=== PATIENT | female | born 1950 | race Hispanic/Latino ===

== ENCOUNTER → 2019-02-04 | Outpatient (CLI) | payer MEDICARE, OTHER ==
[~2019-02-04] MED LIST: ADVAIR 100-501 EACH INH; AMLODIPINE BESY10 MG PO; BENZONATATE200 MG PO; BENZONATE; NORVASC10 MG PO
--- NOTE | 2019-02-04 12:20 | Diagnostic Imaging Report ---
Exam: Chest radiograph Clinical History: Preoperative clearance Findings: The cardiomediastinal silhouette and lungs are normal. The regional skeleton and soft tissue are unremarkable. There is no evidence of pleural effusion or pneumothorax. Impression: No radiographic evidence of acute cardiopulmonary disease. Signed by: Dr. Marlo Walsh MD on 02/04/2019 12:16 PM
== END ==
LOC: RAD 11:33
PROVIDERS: ATTEND Family Medicine
DX: Z01.810 Encounter for preprocedural cardiovascular examination (principal)
CPT/HCPCS: 71046

== ENCOUNTER → 2019-03-24 | Outpatient (CLI) | payer MEDICARE, OTHER ==
--- NOTE | 2019-03-24 15:48 | Diagnostic Imaging Report ---
EXAMINATION: KNEE THREE VIEWS BILATERAL INDICATION: Bilateral knee pain COMPARISON: None FINDINGS: AP lateral and oblique images of both knees were obtained. Right: No acute fracture or dislocation. Alignment is anatomic. Moderate suprapatellar joint effusion. Milder compartmental degenerative changes. Left: No acute fracture or dislocation. Alignment is anatomic. Moderate suprapatellar joint effusion. Minimal degenerative changes. IMPRESSION: No acute osseous injury. Mild right and minimal left degenerative changes. Moderate suprapatellar joint effusions of both knees. Signed by: Claudia Nation MD on 03/24/2019 3:45 PM
== END ==
LOC: RAD 14:13
PROVIDERS: ATTEND Family Medicine
DX: M25.562 Pain in left knee (principal); M25.561 Pain in right knee

== ENCOUNTER → 2019-09-30 | Outpatient (CLI) | payer MEDICARE, OTHER ==
[~2019-09-30] MED LIST changes: +CALTRATE 600 W1 EACH PO; +FOLIC ACID PO; +HYDROXYCHLOROQ200 MG PO; +HYDROXYZINE HCL25 MG PO; +LEXAPRO10 MG PO; +LOSARTAN-HCTZ1 EAC1 PO; +METHOTREXATE2.5 MG PO; +NORCO 7.5-3251 EACH PO
--- NOTE | 2019-09-30 11:19 | Diagnostic Imaging Report ---
X-ray chest PA and lateral History: Preop Findings: Normal cardiomediastinal silhouettes. No pleural effusion or pneumothorax. Lung bonner show no focal disease. Thoracic kyphosis. Osteopenia. 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 Cholecystectomy clips. Impression: No acute cardiopulmonary disease. Signed by: Orestes Ellison MD on 09/30/2019 11:16 AM
== END ==
LOC: RAD 10:38
PROVIDERS: ATTEND Family Medicine
DX: Z01.818 Encounter for other preprocedural examination (principal)
CPT/HCPCS: 71046

== ENCOUNTER 2019-10-18 08:03 | Observation (INO) | payer MEDICARE, OTHER ==
[2019-10-14 11:34] LABS: BASOPHILS % 0.8 % (0.0-1.0); EOSINOPHILS # (AUTO) 0.2 (0.0-0.4); EOSINOPHILS % 2.8 % (0.0-6.0); HEMATOCRIT 38.6 % (34.2-44.1); LYMPHOCYTES # (AUTO) 1.5 (1.0-3.2); LYMPHOCYTES % 27.4 % (18.0-39.1); MEAN CORPUSCULAR HGB CONC 31.1 g/dL (31-35); MEAN CORPUSCULAR VOLUME 90.2 fL (81-99); MONOCYTES # (AUTO) 0.6 (0.2-0.8); MONOCYTES % 10.4 % (4.4-11.3); NEUTROPHILS # (AUTO) 3.1 (2.1-6.9); NEUTROPHILS % 58.4 % (38.7-80.0); PLATELET COUNT 260 x10e3/uL (140-360); RED BLOOD COUNT 4.28 x10e6/uL (3.6-5.1); RED CELL DISTRIBUTION WIDTH 16.5 % (11.7-14.4)
[2019-10-14 11:57] LABS: ANION GAP 14.5 mmol/L (8-16); BLOOD UREA NITROGEN 11 mg/dL (7-26); BUN/CREATININE RATIO 17 (6-25); CALCIUM 9.4 mg/dL (8.4-10.2); CARBON DIOXIDE 25 mmol/L (22-29); CHLORIDE 107 mmol/L (98-107); CREATININE, SERUM 0.64 mg/dL (0.57-1.11); EST GLOMERULAR FILTRATION RATE > 60 ML/MIN (60-); GLUCOSE 89 mg/dL (74-118); POTASSIUM 3.5 mmol/L (3.5-5.1); SODIUM 143 mmol/L (136-145)
[~2019-10-18] VITALS: Ht 162.6 cm; Wt 87.5 kg
[~2019-10-18 08:03] MED LIST changes: +ALEVE220 M1 PO; +AZELASTINE HCL6 ML; +MEDROL4 MG PO; +POTASSIUM CHLO10 ME1 PO; +ROPIVACAINE 246.25 MG, EPINEPHRINE HCL 1:1000 1ML 0.5 MG, CLONIDINE HCL 0.08 MG in SODI... INJ ONE; +TRAZODONE HCL100 MG PO
[2019-10-18] MEDS ORDERED: VANCOMYCIN HCL 0 MG ONE (08:18)
[2019-10-18] MEDS ORDERED: SODIUM CHLORIDE 0.9% 250ML 0 ML ONE (08:19)
[2019-10-18] MEDS ORDERED: TRANEXAMIC ACID 1,000 MG/10 ML ML ONE ×2 (08:19→09:04)
[2019-10-18] MEDS ORDERED: BACITRACIN 50,000 UNIT VIAL ONE ×2 (08:19→09:04)
[2019-10-18] MEDS ORDERED: GABAPENTIN 300 MG CAP ONE (08:40)
[2019-10-18] MEDS ORDERED: DEXAMETHASONE SOD PHOS 10 MG/1 ML VIAL ONE (08:40)
[2019-10-18] MEDS ORDERED: CELECOXIB 200 MG CAP ONE (08:40)
[2019-10-18] MEDS ORDERED: VANCOMYCIN HCL 1,000 MG ONE (09:04)
[2019-10-18] MEDS ORDERED: SODIUM CHLORIDE 0.9% 250ML 500 ML ONE (09:05)
[2019-10-18] MEDS ORDERED: CEFAZOLIN SOD 1 GM/NS 50ML 100 ML IV ONE (09:12)
[2019-10-18] MEDS ORDERED: DIPHENHYDRAMINE HCL INJ 50 MG/ML VIAL IV PRN (11:45)
[2019-10-18] MEDS ORDERED: SODIUM CHLORIDE 0.9% 1000ML 1,000 ML IV SCH (11:45)
[2019-10-18] MEDS ORDERED: ONDANSETRON HCL INJ 2MG/ML 2ML 2 MG/ML VIAL IV PRN (11:45)
[2019-10-18] MEDS ORDERED: HYDROCODONE/APAP 5MG-325MG TAB PO PRN (11:45)
[2019-10-18] MEDS ORDERED: KETOROLAC TROMETHAMINE 30 MG/ML VIAL IV PRN (11:45)
[2019-10-18] MEDS ORDERED: ACETAMINOPHEN 650 MG SUPP PR PRN (11:45)
[2019-10-18] MEDS ORDERED: DOCUSATE SODIUM 100 MG CAP PO PRN (11:45)
[2019-10-18] MEDS ORDERED: HYDROMORPHONE 1MG/1ML INJ ONE ×2 (12:12→13:03)
--- OUTSIDE RECORDS SUMMARY | 2019-10-18 12:31 | XMS REPORT ---
Author Author KRYSTAL Griffin Organization [employer] Address Unknown Phone Unavailable Care Team Providers Care District Sales Representative Name Role Phone Jignesh Griffin Unavailable Allergies No Known Allergies Problems Problem Type Condition Code Onset Dates Condition Statu s Problem Acute pain of left knee M25.562 Acti ve Problem Rheumatoid arthritis involvi ng multiple sites with positive rheumatoid factor M05.79 Active Problem Acute pain of right knee M25.561 Act michael Problem Pain in right shoulder M25.511 Activ e Problem Polyarthritis M13.0 Active Problem Positive PONCE (antinuclear antibody) R76.8 Active Problem Polymyalgia rheumatica M35.3 Activ e Medications No Known Medications Results No Known Results Summary Purpose [employer] Submission
--- OUTSIDE RECORDS SUMMARY | 2019-10-18 12:31 | XMS REPORT ---
Author Author KRYSTAL Griffin Organization [employer] Address Unknown Phone Unavailable Care Team Providers Care Chro Name Role Phone Jignesh Griffin CP Unavailable Allergies No Known Allergies Problems Problem Type Condition Code Onset Dates Condition Statu s Problem Polyarthritis M13.0 Active Problem Acute pain of right knee M25.561 Act michael Problem Acute pain of left knee M25.562 Acti ve Problem Immunosuppressed status D89.9 Acti ve Problem Polymyalgia rheumatica M35.3 Activ e Problem Pain in right shoulder M25.511 Activ e Problem Rheumatoid arthritis involvi ng multiple sites with positive rheumatoid factor M05.79 Active Problem Positive PONCE (antinuclear antibody) R76.8 Active Medications No Known Medications Results No Known Results Summary Purpose [employer] Submission
--- OUTSIDE RECORDS SUMMARY | 2019-10-18 12:31 | XMS REPORT ---
Author Author KRYSTAL Griffin Organization [employer] Address Unknown Phone Unavailable Care Team Providers Care Director Of Video Analytics Name Role Phone Jignesh Griffin Unavailable Allergies [...]
--- OUTSIDE RECORDS SUMMARY | 2019-10-18 12:31 | XMS REPORT ---
Author Author KRYSTAL Griffin Organization [employer] Address Unknown Phone Unavailable Care Team Providers Care Chromium Plater Name Role Phone Jignesh Griffin CP Unavailable [...] Problem Polymyalgia rheumatica M35.3 Activ e Medications Medication Code System Code Instructions Start Date End Date Status Dosage Voltaren Gel NDC 0 1% Transdermal Four times a day Mar 21 9 Active apply to affected area Results No Known Results Summary Purpose [employer] Submission
--- OUTSIDE RECORDS SUMMARY | 2019-10-18 12:31 | XMS REPORT ---
Author Author KRYSTAL Griffin Organization [employer] Address Unknown Phone Unavailable Care Team Providers Care Sewer Pipe Layer Name Role Phone Jignesh Griffin Unavailable Allergies [...]
--- OUTSIDE RECORDS SUMMARY | 2019-10-18 12:31 | XMS REPORT ---
Author Author KRYSTAL Griffin [facility] [employer] Address Unknown Phone Unavailable Care Team Providers Care Senior Nuclear Medicine Technologist Name Role Phone Jignesh Griffin Unavailable Allergies, Adverse Reactions, Alerts Substance Reaction Event Type Detrol Info Not Available Non Drug Allergy Penicillin shortness of breath Non Drug Allergy Problems Problem Type Condition Code Onset Dates Condition Statu s Assessment Polyarthritis M13.0 Active Assessment Polymyalgia rheumatica M35.3 Activ e Problem Polymyalgia rheumatica M35.3 Activ e Problem Pain in right shoulder M25.511 Activ e Problem Rheumatoid arthritis involvi ng multiple sites with positive rheumatoid factor M05.79 Active Assessment Rheumatoid arthritis involvi ng multiple sites with positive rheumatoid factor M05.79 Active Problem Polyarthritis M13.0 Active Problem Positive PONCE (antinuclear antibody) R76.8 Active Medications Medication Code System Code Instructions Start Date End Date Status Dosage Multivitamin FORMERLY NAMED [facility] [address] - Orally Active as di rected Losartan Potassium-HCTZ ND 72644611339 100-25mg Orally Once a day Active 1 tablet Advair Diskus ND 46713361981 500-50 MCG/DOSE Inhalation Twice a day Active 1 puff HydrOXYzine HCl ND 24865612229 25 MG Orally every 8 hrs Active 1 tablet as needed Doxepin HCl ND 84218445471 5 % Externally Four times a day Active 1 application to affected area as needed Caltrate 600+D ND 98701828726 600-800 MG-UNIT Orally Once a day Active 1 tablet with a meal Hydroxychloroquine Sulfate ND 53439576682 200 MG Orally bid Mar 09, 2018 Active 1 tablet with food or milk Allergy Shots NDC 0 Once a month Active 4 s hots Lidocaine-Prilocaine ND 62422706217 2.5-2.5 % Externally Active as directed Benzonatate ND 90421445378 200 MG Orally Three times a day Active 1 capsule Tylenol 8 Hour ND 87203239025 650 MG Orally As needed Active 2 tablets as needed Ibuprofen FORMERLY NAMED [facility] 61640638462 200 MG Orally As needed Ac tive 1 tablet with food or milk as needed Escitalopram Oxalate FORMERLY NAMED [facility] 70797602488 10 MG Orally Once a day Active 1 tablet Vital Signs Date/Time: Mar 09, 2018 BMI 36.56 Index Weight 193.5 lbs Height 61 in Temperature 98.3 F Cardiac Monitoring Heart Rate 76 /min Blood Pressure Diastolic 92 mm Hg Blood Pressure Systolic 136 mm Hg Results No Known Results Summary Purpose [employer] Submission
--- OUTSIDE RECORDS SUMMARY | 2019-10-18 12:31 | XMS REPORT ---
Author Author KRYSTAL Griffin Organization [employer] Address Unknown Phone Unavailable Care Team Providers Care Wire Brush Operator Name Role Phone Jignesh Griffin Unavailable Allergies [...]
--- OUTSIDE RECORDS SUMMARY | 2019-10-18 12:31 | XMS REPORT | CCD ---
Author Author Auto Generated, KRYSTAL FOWLER Organization [facility] Address Unknown Phone Unavailable Care Team Providers Care Studio Receptionist Name Role Phone Foster Witt Jr CP Allergies, Adverse Reactions, Alerts Substance Reaction Status NKDA Active Problem List Condition Effective Dates Status Hypertension Active Numbness of finger1 Active pain in right lateral side of arm Active seasonal allergies Active Shortness of breath2 Active 1both sides 2on exertion
--- OUTSIDE RECORDS SUMMARY | 2019-10-18 12:31 | XMS REPORT | Summary of Care ---
Author Author [facility] Organization [facility] Address Unknown Phone Unavailable Encounter HQ Claribel(FIN) [id number] Date(s): 12/03/17 - 12/03/17 [facility] - [place] [address] [place] [phone] Discharge Disposition: Home or Self Care Attending Physician: Foster Gutierrez MD Referring Physician: Foster Gutierrez MD Vital Signs No data available for this section Problem List Condition Effective Dates Status Health Status Informan t Hypertension(Confirm Active ed) Numbness of Active finger(Confirmed)1 Shortness of Active breath(Confirmed)2 1both sides 2on exertion Allergies, Adverse Reactions, Alerts Substance Reaction Severity Status NKDA Active Medications No data available for this section Results No data available for this section Immunizations No data available for this section Procedures Procedure Date Related Diagnosis Body Site Status Cholecystectomy 03/25/12 Completed Arthroscopy and drilling of knee Completed Bilateral tubal ligation Completed Social History No data available for this section Assessment and Plan No data available for this section
--- OUTSIDE RECORDS SUMMARY | 2019-10-18 12:31 | XMS REPORT | Continuity of Care Document ---
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 Name Role Phone [facility] Unavailable Un available Problems Problem Status Onset Date Classification Date Reported Comments Source M75.01 - ADHESIVE CAPSULITIS OF RIGHT S Active 02/02/2019 JERRY Garibay M75.121 - COMPLETE ROTATR-CUFF TEAR/RUPT Active 11/02/2017 JERRY Garibay ICD 840.4 840.7 726.2 [id number] Active 11/08/2012 [facility] Limb Pain Active 12/09/2012 [facility] Essential hypertension (disorder) [facility] [place] [facility] Numbness of finger (finding) A ctive Problem both sides [facility] [place] Dyspnea (finding) Active Problem 03/06/2019 on exertion Chuck Mallory [facility] [place] Numbness of finger Active Problem 02/18/2013 1both sides [facility] [place] Shortness of breath Active Problem 02/18/2013 2on exertion [facility], [facility] [place] Hypertension Active Problem 04/21/2013 [facility] [place] pain in right lateral side of arm Active Problem JERRY Garibay [place] [facility] [place] seasonal allergies Active Problem 04/21/2013 YARELY Mallory t,[facility] [place] Acute pain of left knee Active Problem 10/08/2019 Edinson Griffin Rheumatoid arthritis involving multiple sites with positive rheumatoid factor Active Problem 10/08/2019 Edinson Griffin Acute pain of right knee Active Problem 10/08/2019 Edinson Griffin Pain in right shoulder Active Problem 10/08/2019 Edinson Griffin Polyarthritis Active Problem 10/08/2019 Edinson Griffin Positive PONCE (antinuclear antibody) Active Problem Edinson Griffin Polymyalgia rheumatica Active Problem 10/08/2019 Edinson Griffin Encounter for long-term (current) use of high-risk medication Active Diag nosis 12/29/2018 Edinson Griffin Wrist pain, left Active Diagnosis 02/25/2018 Edinson Griffin Wrist pain, right Active Diagnosis 02/25/2018 Edinson Griffin Immunosuppressed status Active Problem 10/08/2019 Edinson Griffin SHOULDER Active [facility] [place] RT SHOULDER BUSITIS/IMPINGEMENT Active [facility] [place] RT SHOULDER Active [facility] [place] Medications Medication Details Route Status Patient Instructions Ordering Provider Order Date Source Hydroxychloroquine Sulfate 1 t ablet with food or milk Orally Active 200 MG Orally twice a day Wall er 10/07/2019 Edinson Griffin Medrol 2 tablets with food or milk Orally Active 4 MG Orally qAM Zuniga 07/18/2019 Edinson Griffin Hydroxychloroquine Sulfate 1 t ablet with food or milk Orally Active 200 MG Orally twice a day Ambr iz 07/05/2019 Edinson Griffin Methotrexate 8 tablets Orally Active 2.5 MG Orally q weekly Zuniga 07/05/2019 Edinson Griffin Medrol 2 tablets with food or milk Orally Active 4 MG Orally qAM Zuniga 06/07/2019 Edinson Griffin Hydroxychloroquine Sulfate 1 t ablet with food or milk Orally Active 200 MG Orally twice a day Ambr iz 05/27/2019 Edinson Griffin Voltaren Gel apply to affected area Transdermal Active 1% Transdermal Four times a day Griffin 03/28/2019 Edinson rGiffin Methotrexate 5 tablets Orally Active 2.5 MG Orally q week Griffin 03/28/2019 Edinson Griffin Voltaren Gel apply to affected area Transdermal Active 1% Transdermal Four times a day Griffin 03/21/2019 Edinson Griffin Medrol Dose Ronal as directed Orally Active 4mg Orally once a day Griffin 03/15/2019 Edinson Griffin Hydroxychloroquine Sulfate 1 t ablet with food or milk Orally Active 200 MG Orally twice a day Wall er 11/08/2018 Edinson Griffin PredniSONE 3 tablets Orally Active 5 MG Orally q am with f ood Griffin 11/05/2018 Edinson Griffin Methotrexate 5 tablets Orally Active 2.5 MG Orally q week [place] 09/09/2018 Edinsonroberta Griffin Folic Acid 1 tablet Orally Active 1 MG Orally Once a day Zuniga 09/09/2018 Edinson Griffin Hydroxychloroquine Sulfate 1 t ablet with food or milk Orally Active 200 MG Orally bid Joanna 03/09/2018 Edinson Griffin PredniSONE 3 tablets Orally Active 5 MG Orally q am with f ood [place] 01/05/2018 Edinson Griffin fentanyl 25 microgram, Route: IV, ONCE, Dosing Weight 80, kg, PRN Pain, Start date: 11/12/12 20:27:00 IV No Longer Active [facility] 11/13/2012 [facility] fentanyl 25 microgram, Route: IV, ONCE, Dosing Weight 80, kg, PRN Pain, Start date: 11/12/12 20:25:00 IV No Longer Active [facility] 11/13/2012 [facility] flumazenil 0.2 mg, Route: IVP, PRN, Dosing Weight 80, kg, PRN Benzodiazepine Reversal, Initial dose, Start date: 11/12/12 10:32:00, Duration: 30 day, Stop date: 12/12/12 10:31:00 IVP No Longer Active Bridget 11/12/2012 [facility] hydromorphone 0.5 mg, 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: 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, Q5Min, Dosing Weight 80, kg, PRN Pain Score 7-10, Start date: 11/12/12 10:32:00, Duration: 5 doses or times, Stop date: Limited # of times IVP No Longer Active Bridget 11/12/2012 [facility] fentanyl 25 microgram, Route: IVP, Q5Min, Dosing Weight 80, kg, PRN Pain Score 4-6, Start date: 11/12/12 10:32:00, Duration: 4 doses or times, Stop date: Limited # of times IVP No Longer Active Bridget 11/12/2012 [facility] acetaminophen-hydrocodone 325 mg-5 mg oral tablet 2 tab, Route: PO, Dosing Weight 80, kg, Q4H, PRN Pain Score 4-6, Start date: 11/12/12 10:32:00, Duration: 30 day, Stop date: 12/12/12 10:31:00 PO No Longer Active Bridget 11/12/2012 [facility] ondansetron 4 mg, Route: IVP, ONCE, Dosing Weight 80, kg, PRN Nausea & Vomiting, Start date: 11/12/12 10:32:00 IVP No Longer Active Bridget 11/12/2012 [facility] naloxone 0.04 mg, Route: IVP, Q2MIN, Dosing Weight 80, kg, PRN Narcotic Reversal, Start date: 11/12/12 10:32:00, Duration: 8 doses or times, Stop date: Limited # of times IVP No Longer Active Bridget 11/12/2012 [facility] Lactated Ringers Injection IV 1000 mL 1,000 mL, Rate: 50 ml/hr, Infuse over: 20 hr, Route: IV, Dosing Weight 80 kg, Total Volume: 1,000, Start date: 11/12/12 10:32:00, Duration: 30 day, Stop date: 12/12/12 10:31:00 IV No Longer Active Bridget 013 [facility] Ancef + Sodium Chloride 0.9% IV 100 mL 2 gm, Route: IVPB, ONCALL, Dosing Weight 80, kg, Start date: 11/12/12 8:00:00, Duration: 1 day, Stop date: 11/13/12 7:59:00 IVPB No Longer Active Eduar 11/12/2012 [facility] Lactated Ringers IV 1,000 mL 1 ,000 mL, Rate: 25 ml/hr, Infuse over: 40 hr, Route: IV, Dosing Weight 80 kg, Total Volume: 1,000, Start date: 11/12/12 7:05:00, Duration: 1 day, Stop date: 11/13/12 7:04:00 IV No Longer Active Maite 11/12/2012 [facility] No Active Medications No Activ e Medications Active [facility] Multivitamin as directed Orally Active - Orally Elias Griffin Losartan Potassium-HCTZ 1 tabl et Orally Active 100-25mg Orally Once a day Nadia Griffin Advair Diskus 1 puff Inhalation Active 500-50 MCG/DOSE Inhalat ion Twice a day Nadia Griffin HydrOXYzine HCl 1 tablet as ne eded Orally Active 25 MG Orally every 8 hrs Nadia Griffin Doxepin HCl 1 application to a ffected area as needed Externally Active 5 % Externally Four times a day Joanna Griffin Caltrate 600+D 1 tablet with a meal Orally Active 600-800 MG-UNIT Orally Once a day Nadia Griffin Allergy Shots 4 shots NA Active Once a month Nadia Griffin Lidocaine-Prilocaine as direct ed Externally Active 2.5-2.5 % Externally Joanna Edinson Griffin Benzonatate 1 capsule Orally Active 200 MG Orally Three matilde es a day Nadia Griffin Tylenol 8 Hour 2 tablets as ne eded Orally Active 650 MG Orally As needed Nadia Griffin Ibuprofen 1 tablet with food o r milk as needed Orally Active 200 MG Orally As needed Nadia Griffin Escitalopram Oxalate 1 tablet Orally Active 10 MG Orally Once a day Nadia Griffin Aleve 1 tablet with food or mi lk as needed Orally Active 220 MG Orally As needed at night Elias Griffin Pennsaid 2 applications to aff ected area Transdermal Active 2 % Transdermal Twice a day Elias Griffin PredniSONE 3 tablets Orally Active 5 MG Orally q am with f ood Joanna Griffin Potassium 1 tab Oral Active Oral Nadia Griffin Magnesium 1 tablet with a meal Orally Active 500 MG Orally Once a day Nadia rGiffin Trazodone HCl 1 tablet at bedt beatriz as needed Orally Active 50 MG Orally Once a day Nadia Griffin Allergies, Adverse Reactions, Alerts Substance Category Reaction Severity Reaction type Status Date Reported Comments Source Detrol Adverse Reaction Info Not Available Adverse Reaction Active 08/30/2019 Edinson Griffin Penicillin Adverse Reaction shortness of breath Adverse Reaction Active 08/30/2019 Edinson Griffin Not Known [facility] No Known Medication Allergies Assertion Drug aller gy [facility] [place] Immunizations No Data Provided for This Section Results No Data Provided for This Section Pathology Reports No Data Provided for This Section Diagnostic Reports Report Value Date Source Shoulder w contrast MRI EXAM: MR ARTHROGRAM RIGHT SHOULDER DATE: 03/04/2019 2:12 PM CDT INDICATION: - M75.121 Complete rotator cuff tear or rupture of right shoulder, not specified as [id number] Impingement syndrome of right shoulder COMPARISON: Radiographs dated 09/10/2018 TECHNIQUE: Fluoroscopy-guided arthrogram was performed prior to MRI. Please see the corresponding report for further details. Axial, oblique coronal, and oblique sagittal MR images of the shoulder. IV contrast: None. FINDINGS: LONG BICIPITAL TENDON The proximal long head of biceps is not clearly defined and likely torn GLENOHUMERAL JOINT Labrum: Diffuse degenerative tear of the labrum. No paralabral cysts Cartilage: Diffuse chondral loss involving the humeral head and glenoid symphysis. Ligaments: Middle glenohumeral ligament is not clearly defined and may be torn. Joint fluid: There is intra-articular contrast within glenohumeral joint. Multiple intra-articular joint bodies and debris material noted. There is diffuse irregular synovial thickening. ROTATOR CUFF AND ASSOCIATED STRUCTURES Rotator cuff: Undersurface fraying of the supraspinatus, infraspinatus and subscapularis. Musculature: Mild fatty atrophy of the musculature surrounding the shoulder. Bursa: Small amount of fluid in the subacromial subdeltoid bursa. Acromioclavicular joint: There are expected degenerative changes of the acromioclavicular joint. A type 2 acromion configuration is noted. There is no anterior or lateral acromial downsloping. OSSEOUS STRUCTURES No fracture. Large erosions are seen involving the anteromedial and superior aspects of the humeral head with bony remodeling of the humeral head and glenoid and osteophyte formation. Visualized bone marrow signal is normal. OTHER FINDINGS: A few mildly enlarged lymph nodes in the right axillary region. IMPRESSION: 1. Findings of advanced degenerative ch anges with underlying rheumatoid arthritis as suggested with erosions of the humeral head. 2. Diffuse synovitis and multiple joint bodies/debris material in the glenohumeral joint. 3. The proximal long head of biceps is not clearly defined and may be torn. 4. Mild articular surface fraying of th e rotator cuff without definite full- thickness tear. 5. Mild subacromial subdeltoid bursitis . 03/04/2019 JERRY Garibay Inj Arthrogram Shoulder Unilat DX Exam: Fluoroscopic guided right shoulder arthrogram Reason for Exam: Pain. Rotator cuff tear. Comparison Exam: X-ray 09/10/2018 Discussion: On counsellors view, there are no acute bony abnormalities identified within the right shoulder. No suspicious osteoblastic or osteolytic lesions. However, advanced degenerative changes are seen within the right glenohumeral joint. Right shoulder was prepped and draped in a sterile fashion. 1% lidocaine was used as local anesthesia. Under fluoroscopic guidance, the tip of a 20-gauge needle was placed into the right shoulder joint. Approximately 10 cc of a mixture of Dotarem and Omnipaque was successfully injected. External and internal rotation images were obtained pre- and postinjection of contrast material. No immediate post procedure complications. Please see interpretation of right shoulder MRI performed same day for further details. Fluoro time is 1 minute. Total exam DLP = 94 mGy-cm. Impression: 1. Successful fluoroscopic guided right shoulder arthrogram. 03/04/2019 JERRY Garibay Knee 1-[address] UDY: Two views of each knee. COMPARISON: None. HISTORY: - pain in both knees, rheumatoid arthritis. FINDINGS: Right knee: Mild femorotibial arthritis is seen without joint space narrowing. No bony erosive changes are seen. Moderate suprapatellar joint effusion is seen. No acute fracture or subluxation is seen. No focal soft tissue abnormality is seen. Left knee: Mild femorotibial arthritis is seen without joint space narrowing. No bony erosive changes are seen. Mild suprapatellar joint effusion is seen. No acute fracture or subluxation is seen. No focal soft tissue abnormality is seen. IMPRESSION: No acute osseous abnormality. Mild bilateral knee arthritis with joint effusions. 09/10/2018 JERRY Garibay Shoulder series DX EXAM: Shosahara yonathan series DX DATE: 09/10/2018 9:19 CDT. INDICATION: Right shoulder pain. COMPARISON: Remote right shoulder MRI on 11/02/2017.. TECHNIQUE: 3 views of the right shoulder. FINDINGS: No acute fracture or malalignment is identified. Erosive change has progressed about the superior aspect of the humeral head when compared to 11/02/2017. No definite osteophytes are seen. The acromioclavicular joint is unremarkable. No acute soft tissue abnormality is identified. The visible portions of the right lung are clear. IMPRESSION: 1. No acute, radiographic abnormality o f the RIGHT shoulder. 2. Erosive change about the right humer al head has progressed when compared to 11/02/2017. Findings are compatible with a known history of rheumatoid arthritis. 09/10/2018 JERRY Garibay Spine cervical wo contrast MRI Spine cervical wo contrast MRI 12/03/2017 1:41 PM CDT CLINICAL: M14.611 Charcot's joint, right shoulder - M14.611 Charcot's joint, right shoulder TECHNIQUE: Multiplanar multisequence imaging of the cervical spine was performed without administration of intravenous gadolinium. COMPARISON: No prior exam. FINDINGS: Multilevel disc desiccation is seen.Exaggerated cervical spine lordosis is present. C1-C2: No spinal stenosis or neural foraminal stenosis. C2-C3: Moderate left foraminal stenosis due to mild left facet arthrosis. No central canal stenosis. C3-C4: Mild left foraminal stenosis due to mild left facet arthrosis. No central canal stenosis. C4-C5: Moderate left facet arthrosis with moderate left foraminal stenosis. No central canal stenosis. C5-C6: Ligamenta flava redundancy is present. Moderate left facet arthrosis and mild right facet arthrosis with moderate left foraminal stenosis. Mild central canal stenosis. C6-C7: Moderate left foraminal stenosis due to small left foraminal osteophytes. No central canal stenosis. C7-T1: There is preservation of the disc height, with no bulging, herniation, spinal stenosis, or neural foraminal stenosis. Normal cervical spinal cord signal is present. IMPRESSION: 1. Multilevel mild to moderate left fora mikaela stenosis due to degenerative changes. 2. C5-C6 mild central canal stenosis. 12/03/2017 JERRY Garibay Shoulder w contrast MRI EXAMIN ATION: MR right shoulder with contrast HISTORY: - M75.121 Complete rotator cuff tear or rupture of right shoulder, not specified as traumatic; lateral right shoulder and upper arm pain with limited range of motion; history of rotator cuff repair 5 years ago COMPARISON: Fluoroscopic images from arthrogram dated same day are reviewed. TECHNIQUE: Multiplanar, multisequence magnetic resonance imaging of the right shoulder is performed with a local coil following the intra-articular administration of contrast which is dictated separately. Transverse, oblique coronal, and oblique sagittal images are obtained. FINDINGS: Biceps: There are postoperative changes of instrumented biceps tenodesis with an orthopedic anchor along the anterior aspect of the proximal humeral shaft. Labrum: There is circumferential tearing of the glenoid labrum. Rotator cuff tendons: There are postoperative changes of supraspinatus tendon repair with multiple orthopedic anchors within the anterior aspect of the greater tuberosity. There is persistent supraspinatus tendinopathy and there is partial-thickness, undersurface fraying of the distal supraspinatus tendon, but the supraspinatus tendon remains attached at the orthopedic anchor sites without recurrent full-thickness tear or tendinous retraction. There is also tendinopathy of the infraspinatus tendon without high-grade partial-thickness or full-thickness infraspinatus tendon tear. The teres minor and subscapularis tendons are intact. Muscles: There is fatty atrophy involving the superior half of the subscapularis muscle. There is normal signal intensity and bulk of the remainder of the rotator cuff musculature. Acromio-osseous outlet: There is a type II acromion without definite subacromial spur. There is no os acromiale. The coracoacromial and coracoclavicular ligaments are intact. There is mild degenerative arthrosis of the acromioclavicular joint. Bone: There are several large osseous erosions involving the anterior, superolateral, and posterior humeral head. There are no acute fractures. There are multiple foci of subchondral edema and cystic change at the glenohumeral joint. Mild osseous degenerative changes are also noted at the acromioclavicular joint. Cartilage: There is severe glenohumeral arthrosis with predominately full- thickness chondrosis involving the humeral head and glenoid. There is also mild acromioclavicular degenerative arthrosis with associated mild chondrosis. Soft tissue: There is extensive multifocal synovitis within the glenohumeral joint space. There is a small to moderate amount of fluid in the subacromial- subdeltoid bursa. The inferior glenohumeral capsular ligaments are grossly intact. IMPRESSION: 1. Severe right glenohumeral arthrosis w ith predominantly full-thickness chondrosis involving the humeral head and glenoid, several large osseous erosions along the anterior, superolateral, and posterior right humeral head, and multiple foci of subchondral edema and cystic change at the glenohumeral joint. Given the large osseous erosions, differential diagnosis would be headed by inflammatory or crystalline arthropathy including rheumatoid arthritis or [place] shoulder. Septic arthritis with osteomyelitis could have a similar appearance, but is felt to be less likely. 2. Extensive multifocal synovitis within the right glenohumeral joint space. 3. Postoperative changes of right supras pinatus tendon repair. There is persistent right supraspinatus tendinopathy and partial-thickness, undersurface fraying of the distal right supraspinatus tendon, but no recurrent full- thickness supraspinatus tendon tear or tendinous retraction. There is also right infraspinatus tendinopathy, but no high-grade infraspinatus tendon tear and there is no right supraspinatus or infraspinatus muscular fatty atrophy. 4. Circumferential tearing of the right glenoid labrum. 5. Postoperative changes of instrumented right biceps tenodesis. 6. Mild right acromioclavicular degenera tive arthrosis. 7. Mild to moderate right subacromial nelson bdeltoid bursitis. 11/02/2017 JERRY Garibay Inj Arthrogram Shoulder Unilat DX Exam: Fluoroscopic guided right shoulder arthrogram Reason for Exam: Pain Comparison Exam: None Discussion: On counsellors view, there are no acute bony abnormalities identified within the right shoulder. right shoulder was prepped and draped in a sterile fashion. 1% lidocaine was used as local anesthesia. Under fluoroscopic guidance, the tip of a 22-gauge needle was placed into the right shoulder joint. Approximately 10 cc of a mixture of gadolinium and Dotarem was successfully injected. External and internal rotation images were obtained pre- and postinjection of contrast material. No immediate post procedure complications. Please see interpretation of right shoulder MRI performed same day for further details. Fluoro time is 29 seconds. Total exam DLP = 69.4 mGy-cm. Impression: 1. Successful fluoroscopic guided right shoulder arthrogram. 11/02/2017 YARELY Garibay Pelvis with Pelvis Transvaginal US PELVIC SONOGRAM CLINICAL HISTORY: 625.9, abnormal Pap smear COMPARISON IMAGIN06/23/2006 TECHNIQUE: Transabdominal and transvaginal real time sonography was performed by an mechatronics technologist, and care support representative static images were submitted for review. FINDINGS: Uterus: Measures 5.2 x 2.4 x 5.1 cm. Endometrial stripe is 5 mm in thickness. No distinct uterine mass is identified. There is no free fluid in the pelvis. Bilateral ovaries are not visualized. No abnormal Doppler signal or suspicious adnexal abnormality. IMPRESSION: Endometrial stripe measures 5 mm. 04/19/2013 JERRY Garibay Consultation Notes No Data Provided for This Section Discharge Summaries No Data Provided for This Section History and Physicals No Data Provided for This Section Vital Signs Vital Sign Value Date Comments Source Weight 186 08/30/2019 Edinson Griffin Height 61.5 08/30/2019 Edinson Griffin Temperature Oral (F) 98 F 08/30/2019 Edinson Griffin Heart Rate 60 08/30/2019 Edinson Griffin Diastolic (mm Hg) 60 08/30/2019 Edinson Griffin Systolic (mm Hg) 126 08/30/2019 Edinson Griffin Weight 192.2 07/05/2019 Edinson Griffin Height 61.5 07/05/2019 Edinson Griffin Temperature Oral (F) 98.0 F 07/05/2019 Edinson Griffin Heart Rate 72 07/05/2019 Edinson Griffin Diastolic (mm Hg) 78 07/05/2019 Edinson Griffin Systolic (mm Hg) 140 07/05/2019 Edinson Griffin Weight 196.1 02/03/2019 Edinson Griffin Height 62 0 02/03/2019 Edinson Griffin Temperature Oral (F) 98.5 F 02/03/2019 Edinson Griffin Heart Rate 64 02/03/2019 Edinson Griffin Diastolic (mm Hg) 70 02/03/2019 Edinson Griffin Systolic (mm Hg) 122 02/03/2019 Edinson Griffin Weight 195.7 12/23/2018 Edinson Griffin Height 62 0 12/23/2018 Edinson Griffin Temperature Oral (F) 98.4 F 12/23/2018 Edinson Griffin Heart Rate 72 12/23/2018 Edinson Griffin Diastolic (mm Hg) 70 12/23/2018 Edinson Griffin Systolic (mm Hg) 122 12/23/2018 Edinson Griffin Weight 196.1 06/14/2018 Edinson Griffin Height 62 0 06/14/2018 Edinson Griffin Temperature Oral (F) 97.9 F 06/14/2018 Edinson Griffin Heart Rate 72 06/14/2018 Edinson Griffin Diastolic (mm Hg) 80 06/14/2018 Edinson Griffin Systolic (mm Hg) 118 06/14/2018 Edinson Griffin Weight 194.5 06/01/2018 Edinson Griffin Height 61 0 06/01/2018 Edinson Griffin Temperature Oral (F) 98.1 F 06/01/2018 Edinson Griffin Heart Rate 60 06/01/2018 Edinson Griffin Diastolic (mm Hg) 70 06/01/2018 Edinson Griffin Systolic (mm Hg) 104 06/01/2018 Edinson Griffin Weight 193.5 03/09/2018 Edinson Griffin Height 61 1 Edinson Griffin Temperature Oral (F) 98.3 F 03/09/2018 Edinson Griffin Heart Rate 76 03/09/2018 Edinson Griffin Diastolic (mm Hg) 92 03/09/2018 Edinson Griffin Systolic (mm Hg) 136 03/09/2018 Edinson Griffin Weight 188 01/05/2018 Edinson Griffin Height 61 0 01/05/2018 Edinson Griffin Temperature Oral (F) 98.3 F 01/05/2018 Edinson Griffin Heart Rate 96 01/05/2018 Edinson Griffin Diastolic (mm Hg) 62 01/05/2018 Edinson Griffin Systolic (mm Hg) 110 01/05/2018 Edinson Griffin Systolic (mm Hg) 112 11/12/2012 [facility] Diastolic (mm Hg) 65 11/12/2012 [facility] Systolic (mm Hg) 111 11/12/2012 [facility] Diastolic (mm Hg) 67 11/12/2012 [facility] Diastolic (mm Hg) 68 11/12/2012 [facility] Systolic (mm Hg) 105 11/12/2012 [facility] Respitory Rate 13 11/12/2012 [facility] Respitory Rate 10 11/12/2012 [facility] Respitory Rate 10 11/12/2012 [facility] Height 162.56 cm 11/12/2012 [facility] Weight 80 0 11/12/2012 [facility] Heart Rate 59 11/12/2012 [facility] Temperature Oral (F) 97.9 F 11/12/2012 [facility] Encounters Location Location Details Encounter Type Encounter Number Reason For Visit Attending Provider ADM Date DC Date Status Source AUDIT [id number] 09/21/2012 09/21/2012 [facility] A[facility] [id number] 10/30/2012 10/30/2012 [facility] U89, Provi yonathan: RYLIE WITT, Status: Pen, Time: 8:30 AM [id number] 11/06/19 13 10/30/2012 [facility] POP Provi yonathan: RYLIE WITT, Status: Pen, Time: 2:30 PM [id number] 11/09/19 13 10/30/2012 [facility] [place] [id number] RYLIE WITT JR 11/12/2012 11/12/2012 Discharged [facility] [id number] SHOULDER RYLIE WITT 11/15/2012 Active [facility] AUDIT [id number] 12/09/2012 12/09/2012 [facility] [place] Y[place] yonathan: RYLIE WITT, Status: Pen, Time: 1:15 PM [id number] 12/14/19 13 12/09/2012 [facility] [id number] SHOULDER RYLIE WITT 12/16/2012 Active [facility] TH [id number] SHOULDER RYLIE WITT 01/18/2013 Active [facility] [place] [id number] Rylie Witt Jr 10/19/2015 11/18/2015 [facility] [place] [id number] Rylie Witt Jr 11/20/2015 12/20/2015 [facility] [place] [id number] Rylie Witt Jr 12/28/2015 01/27/2016 [facility] [place] [place] [facility] [id number] 01 Rylie Witt Jr 11/02/2017 11/03/2017 [facility] [place] [facility] [id number] 02 Rylie Witt Jr 12/03/2017 12/04/2017 [facility] [place] [facility] [id number] 03 Jignesh Griffin 09/10/2018 09/11/2018 [facility] [place] [facility] [id number] 04 Rylie Witt Jr 03/04/2019 03/05/2019 [facility] [place] Procedures Procedure Code Date Perfomer Comments Source Cholecystectomy [id number] 03/25/2012 [facility] [place] [place] Arthroscopy and drilling of knee [id number] [facility] [place] [place] Bilateral tubal ligation [id number] 4005 [facility] [place] [place] Assessment and Plan No Data Provided for This Section Plan of Care Plan of Care Date Source [U] XRAY SHOULDER MIN 2 VWS RIGHT 09/21/2012 Routine 09/21/2012 [facility] Social History Social History Date Source No data available for this section 03/05/2019 [facility] [place] No data available for this section 01/27/2016 [facility] [place] Family History No Data Provided for This Section Advance Directives Order Name Results Value Date Source Advance Directives Advance Dir ectives No Advance Directives available. 12/09/2012 [facility] Advance Directives Advance Dir ectives No Advance Directives available. 10/30/2012 [facility] Advance Directives Advance Dir ectives No Advance Directives available. 09/21/2012 [facility] Functional Status No Data Provided for This Section
--- OUTSIDE RECORDS SUMMARY | 2019-10-18 12:31 | XMS REPORT | Summary of Care ---
Author Author [facility] Address Unknown Phone Unavailable Encounter HQ Encntr_alias(FIN) [id number] Date(s): 12/28/15 - 01/26/16 [facility] Discharge Disposition: Home or Self Care Attending Physician: Foster Gutierrez MD Vital Signs No [...] Procedures Procedure Date Related Diagnosis Body Site Cholecystectomy 03/25/12 Arthroscopy and drilling of knee Bilateral tubal ligation Social History No data available for this section Assessment and Plan No data available for this section
--- OUTSIDE RECORDS SUMMARY | 2019-10-18 12:31 | XMS REPORT ---
Author Author KRYSTAL Griffin Organization [employer] Address Unknown Phone Unavailable Care Team Providers Care School Leader Name Role Phone Jignesh Griffin CP Unavailable [...] Instructions Start Date End Date Status Dosage Medrol [facility] 05864959245 4 MG Orally qAM Jul 18, 2019 Active 2 tablets with food or milk Results No Known Results Summary Purpose [employer] Submission
--- OUTSIDE RECORDS SUMMARY | 2019-10-18 12:31 | XMS REPORT ---
Author Author KRYSTAL Griffin Organization [employer] Address Unknown Phone Unavailable Care Team Providers Care Commodity Director Name Role Phone Jignesh Griffin Unavailable Allergies [...]
--- OUTSIDE RECORDS SUMMARY | 2019-10-18 12:31 | XMS REPORT ---
Author Author KRYSTAL Griffin Organization [employer] Address Unknown Phone Unavailable Care Team Providers Care Photoresist Printer Name Role Phone Jignesh Griffin CP Unavailable [...] Instructions Start Date End Date Status Dosage Hydroxychloroquine Sulfate [facility] 82048270779 200 MG Orally twice a day October 07, 2019 Active 1 tablet with food o r milk Results No Known Results Summary Purpose [employer] Submission
--- OUTSIDE RECORDS SUMMARY | 2019-10-18 12:31 | XMS REPORT | Summary of Care ---
Author Author [facility] Outpatient Imaging - [facility] Organization [facility] Outpatient Imaging [facility] Address Unknown Phone Unavailable Encounter HQ Mary Kay_dalia(FIN) [id number] Date(s): 11/02/17 - 11/02/17 [facility] Outpatient Imaging - [place] [address] [place] [address] [phone] Discharge Disposition: Home or Self Care Attending [...]
--- OUTSIDE RECORDS SUMMARY | 2019-10-18 12:31 | XMS REPORT | CCD ---
Author Author Auto KRYSTAL Allison Organization [facility] Outpatient Imaging - [place] [facility] Address Unknown Phone Unavailable Care Team Providers Care Childcare Administrator Name Role Phone Abbi Kraus CP Allergies, Adverse Reactions, Alerts Substance Reaction Status NKDA Active Problem List Condition Effective Dates Status Hypertension Active Numbness of finger1 Active pain in right lateral side of arm Active seasonal allergies Active Shortness of breath2 Active 1both sides 2on exertion
--- OUTSIDE RECORDS SUMMARY | 2019-10-18 12:31 | XMS REPORT ---
Author Author KRYSTAL Griffin Organization [employer] Address Unknown Phone Unavailable Care Team Providers Care Recruitment Manager Name Role Phone Jignesh Griffin CP Unavailable [...]
--- OUTSIDE RECORDS SUMMARY | 2019-10-18 12:31 | XMS REPORT | Summary of Care ---
Author Author [facility] Outpatient Imaging - [facility] Organization [facility] Outpatient Imaging - [facility] Address Unknown Phone Unavailable Encounter HQ Mary Kay_dalia(FIN) [id number] Date(s): 09/10/18 - 09/10/18 [facility] Outpatient Imaging - [place] [address] [place] [address]- [phone] Discharge Disposition: Home or Self Care Attending Physician: Jignesh Griffin MD Referring Physician: Jignesh Griffin MD Vital Signs No data available for [...]
--- OUTSIDE RECORDS SUMMARY | 2019-10-18 12:31 | XMS REPORT ---
Author Author KRYSTAL Griffin [facility] [employer] Address Unknown Phone Unavailable Care Team Providers Care Information Clerk Brokerage Name Role Phone Jignesh Griffin Unavailable Allergies, Adverse Reactions, Alerts Substance Reaction Event Type Detrol Info Not Available Non Drug Allergy Penicillin shortness of breath Non Drug Allergy Problems Problem Type Condition Code Onset Dates Condition Statu s Assessment Polymyalgia rheumatica M35.3 Activ e Assessment Polyarthritis M13.0 Active Problem Polymyalgia rheumatica M35.3 Activ e Problem Pain in right shoulder M25.511 Activ e Problem Rheumatoid arthritis involvi ng multiple sites with positive rheumatoid factor M05.79 Active Assessment Rheumatoid arthritis involvi ng multiple sites with positive rheumatoid factor M05.79 Active Problem Polyarthritis M13.0 Active Problem Positive PONCE (antinuclear antibody) R76.8 Active Medications Medication Code System Code Instructions Start Date End Date Status Dosage Escitalopram Oxalate ND 20339703734 10 MG Orally Once a day Active 1 tablet Advair Diskus ND 92014135828 500-50 MCG/DOSE Inhalation Twice a day Active 1 puff Losartan Potassium-HCTZ ND 25146196547 100-25mg Orally Once a day Active 1 tablet Allergy Shots NDC 0 Once a month Active 4 s hots HydrOXYzine HCl ND 21379102883 25 MG Orally every 8 hrs Active 1 tablet as needed Doxepin HCl ND 05441165668 5 % Externally Four times a day Active 1 application [place] [address] - Orally Active as di rected Ibuprofen ND 45871643322 200 MG Orally As needed Ac tive 1 tablet with food or milk as needed Tylenol 8 Hour ND 22055919937 650 MG Orally As needed Active 2 tablets as needed Hydroxychloroquine Sulfate ND 23212405138 200 MG Orally bid O [address] 2017September 29, 2018 Active 1 tablet with food or milk Lidocaine-Prilocaine ND 86984145041 2.5-2.5 % Externally Active as directed Benzonatate [facility] 76967116017 200 MG Orally Three times a day Active 1 capsule Caltrate 600+D [facility] 61660130349 600-800 MG-UNIT Orally Once a day Active 1 tablet with a meal Vital Signs Date/Time: Jun 01, 2018 BMI 36.75 Index Weight 194.5 lbs Height 61 in Temperature 98.1 F Cardiac Monitoring Heart Rate 60 /min Blood Pressure Diastolic 70 mm Hg Blood Pressure Systolic 104 mm Hg Results No Known Results Summary Purpose eClinicalWorks Submission
--- OUTSIDE RECORDS SUMMARY | 2019-10-18 12:31 | XMS REPORT | CCD ---
Author Author Auto Generated, KRYSTAL FOWLER Organization [facility] Address Unknown Phone Unavailable Care Team Providers Care Game Advisor Name Role Phone Foster Witt Jr CP Allergies, Adverse Reactions, Alerts Substance Reaction Status NKDA Active Problem List Condition Effective Dates Status Hypertension Active Numbness of finger1 Active pain in right lateral side of arm Active seasonal allergies Active Shortness of breath2 Active 1both sides 2on exertion
--- OUTSIDE RECORDS SUMMARY | 2019-10-18 12:31 | XMS REPORT ---
Author Author KRYSTAL Griffin Organization [employer] Address Unknown Phone Unavailable Care Team Providers Care Stemhole Borer And Topper Name Role Phone Jignesh Griffin CP Unavailable [...]
--- OUTSIDE RECORDS SUMMARY | 2019-10-18 12:31 | XMS REPORT ---
Author Author KRYSATL Griffin Organization [employer] Address Unknown Phone Unavailable Care Team Providers Care General Education Professor Name Role Phone Jignesh Griffin Unavailable Allergies [...]
--- OUTSIDE RECORDS SUMMARY | 2019-10-18 12:31 | XMS REPORT | Summary of Care ---
Author Author [facility] Address Unknown Phone Unavailable Encounter HQ Encntr_alias(FIN) [id number] Date(s): 11/20/15 - 12/19/15 [facility] Discharge Disposition: Home or Self Care Attending [...]
--- OUTSIDE RECORDS SUMMARY | 2019-10-18 12:31 | XMS REPORT ---
Author Author KRYSTAL Davey Organization Unknown Address Unknown Phone Care Team Providers Care Asbestos Brake Lining Finisher Helper Name Role Phone Petar Hannah PP Reason for Referral No Reason for Referral was given. History of Present Illness No HPI available. Problems * Normal Routine History And Physical Adult (V70.0); (Active) * Limb Pain (729.5); (Active) Medication * No Active Medications Allergies and Adverse Reactions * Not Known Past Medical History * No Significant Medical History Advance Directives * No Advance Directives available. Encounters * AUDIT 10/30/2012 * U89, Provider: RYLIE GUAMAN, Status: Perez, Time: 8:30 AM 11/05/2012 * POP, Provider: RYLIE GUAMAN, Status: Perez, Time: 2:30 PM 11/08/2012
--- OUTSIDE RECORDS SUMMARY | 2019-10-18 12:31 | XMS REPORT | CCD ---
Author Author Auto Generated, KRYSTAL FOWLER Organization [facility] Address Unknown Phone Unavailable Care Team Providers Care Surface Boss Name Role Phone Foster Witt Jr CP Allergies, Adverse Reactions, Alerts Substance Reaction Status NKDA Active Problem List Condition Effective Dates Status Hypertension Active Numbness of finger1 Active pain in right lateral side of arm Active seasonal allergies Active Shortness of breath2 Active 1both sides 2on exertion
--- OUTSIDE RECORDS SUMMARY | 2019-10-18 12:31 | XMS REPORT | Summary of Care ---
Author Author [facility] Outpatient Imaging - [facility] Organization [facility] Outpatient Imaging - [facility] Address Unknown Phone Unavailable Encounter HQ Mary Kay_dalia(FIN) [id number] Date(s): 03/04/19 - 03/04/19 [facility] Outpatient Imaging - [place] [address] [place] [address] [phone] Discharge Disposition: Home or Self Care Attending Physician: Foster Gutierrez MD Referring Physician: Foster Gutierrez MD Vital Signs No data available for this section Problem List Condition Effective Dates Status Health Status Informan t Hypertension(Confirm Active ed) Numbness of Active finger(Confirmed)1 Shortness of Active breath(Confirmed)2 1both sides 2on exertion Allergies, Adverse Reactions, Alerts No Known Medication Allergies Medications No data available for this section [...]
--- OUTSIDE RECORDS SUMMARY | 2019-10-18 12:31 | XMS REPORT ---
Author Author KRYSTAL GUAMAN Organization Unknown Address Unknown Phone Care Team Providers Care Digital Marketer Name Role Phone RYLIE GUAMAN PP Reason for Referral No Reason for Referral was given. History of Present Illness No HPI available. Problems * Limb Pain (729.5); (Active) * Normal Routine History And Physical Adult (V70.0); (Active) Medication * No Active Medications Allergies and Adverse Reactions * Not Known Past Medical History * No Significant Medical History Advance Directives * No Advance Directives available. Encounters * AUDIT 12/09/2012 * POP, Provider: RYLIE GUAMAN, Status: Perez, Time: 1:15 PM 12/13/2012
--- OUTSIDE RECORDS SUMMARY | 2019-10-18 12:31 | XMS REPORT | Summary of Care ---
Author Author [facility] Address Unknown Phone Unavailable Encounter HQ Encntr_alias(FIN) [id number] Date(s): 10/19/15 - 11/17/15 [facility] Discharge Disposition: Home Attending Physician: Foster Gutierrez MD Vital Signs [...]
--- OUTSIDE RECORDS SUMMARY | 2019-10-18 12:31 | XMS REPORT ---
Author Author KRYSTAL Davey Organization Unknown Address Unknown Phone Care Team Providers Care Tennis Player Name Role Phone Hannah Davey PP Reason for Referral No Reason for Referral was given. History of Present Illness No HPI available. Problems * Normal Routine History And Physical Adult (V70.0); (Active) * Limb Pain (729.5); (Active) Medication * No Active Medications Allergies and Adverse Reactions * Not Known Past Medical History * No Significant Medical History Treatment Plan * [U] XRAY SHOULDER MIN 2 VWS RIGHT 09/21/2012 Routine Advance Directives * No Advance Directives available. Encounters * AUDIT 09/21/2012
--- OUTSIDE RECORDS SUMMARY | 2019-10-18 12:31 | XMS REPORT ---
Author Author KRYSTAL Griffin Organization [employer] Address Unknown Phone Unavailable Care Team Providers Care Mercury Cracking Tester Name Role Phone Jignesh Griffin Unavailable Allergies [...]
--- OUTSIDE RECORDS SUMMARY | 2019-10-18 12:32 | XMS REPORT ---
Author Author KRYSTAL Griffin Organization [employer] Address Unknown Phone Unavailable Care Team Providers Care Electric Deicer Assembler Name Role Phone Jignesh Griffin Unavailable Allergies [...]
--- OUTSIDE RECORDS SUMMARY | 2019-10-18 12:32 | XMS REPORT ---
Author Author KRYSTAL Marshall Organization [employer] Address Unknown Phone Unavailable Care Team Providers Care Claims Agent Right Of Way Name Role Phone Yarely Marshall Unavailable Allergies, Adverse Reactions, Alerts Substance Reaction Event Type Detrol Info Not Available Non Drug Allergy Penicillin shortness of breath Non Drug Allergy Problems Problem Type Condition Code Onset Dates Condition Statu s Assessment Pain in right shoulder M25.511 Activ e Problem Polymyalgia rheumatica M35.3 Activ [...] Instructions Start Date End Date Status Dosage Ibuprofen ND 09766664033 200 MG Orally As needed Ac tive 1 tablet with food or milk as needed Losartan Potassium-HCTZ ND 67181150294 100-25mg Orally Once a day Active 1 tablet Benzonatate ND 71946462019 200 MG Orally Three times a day Active 1 capsule Caltrate 600+D ND 74556361309 600-800 MG-UNIT Orally Once a day Active 1 tablet with a meal Hydroxychloroquine Sulfate ND 94468869476 200 MG Orally bid O [address] 2017September 29, 2018 Active 1 tablet with food or milk HydrOXYzine HCl ND 88771396839 25 MG Orally every 8 hrs Active 1 tablet as needed Tylenol 8 Hour ND 08057895398 650 MG Orally As needed Active 2 tablets as needed Lidocaine-Prilocaine ND 20246105777 2.5-2.5 % Externally Active as directed Allergy Shots NDC 0 Once a month Active 4 s hots Advair Diskus ND 90952738839 500-50 MCG/DOSE Inhalation Twice a day Active 1 puff PredniSONE ND 21393727722 5 MG Orally q am with food Active 3 tablets Doxepin HCl [facility] 26812719065 5 % Externally Four times a day Active 1 application to affected area as needed Multivitamin [facility] 48361-[address]74 - Orally Active as di rected Escitalopram Oxalate [facility] 46543519869 10 MG Orally Once a day Active 1 tablet Vital Signs Date/Time: Jun 14, 2018 BMI 35.86 Index Weight 196.1 lbs Height 62 in Temperature 97.9 F Cardiac Monitoring Heart Rate 72 /min Blood Pressure Diastolic 80 mm Hg Blood Pressure Systolic 118 mm Hg Results No Known Results Summary Purpose eClinicalWorks Submission
--- OUTSIDE RECORDS SUMMARY | 2019-10-18 12:32 | XMS REPORT ---
Author Author KRYSTAL Griffin [facility] e[employer] Address Unknown Phone Unavailable Care Team Providers Care Tree Deadener Name Role Phone Jignesh Griffin Unavailable Allergies, Adverse Reactions, Alerts Substance Reaction Event Type Detrol Info Not Available Non Drug Allergy Penicillin shortness of breath Non Drug Allergy Problems Problem Type Condition Code Onset Dates Condition Statu s Assessment Positive PONCE (antinuclear antibody) R76.8 Active Problem Pain in right shoulder M25.511 Activ e Problem Polyarthritis M13.0 Active Problem Polymyalgia rheumatica M35.3 Activ e Assessment Polyarthritis M13.0 Active Assessment Pain in right shoulder M25.511 Activ e Problem Positive PONCE (antinuclear antibody) R76.8 Active Assessment Polymyalgia rheumatica M35.3 Activ e Medications Medication Code System Code Instructions Start Date End Date Status Dosage Caltrate 600+D ND 77870006436 600-800 MG-UNIT Orally Once a day Active 1 tablet with a meal Losartan Potassium-HCTZ ND 82311946451 50-12.5 MG Orally Once a day Active 1 tablet Ibuprofen ND 72813362442 200 MG Orally As needed Ac tive 1 tablet with food or milk as needed Lidocaine-Prilocaine ND 91286652062 2.5-2.5 % Externally Active as directed Aleve ND 95237693984 220 MG Orally As needed at night Active 1 tablet with food or milk as needed PredniSONE ND 66445234633 5 MG Orally q am with food Jan 05 18 May 05, 2018 Active 3 tablets Pen[place]aid ND 93030303869 2 % Transdermal Twice a day Active 2 [place] [address]37 - Orally Active as di rected Escitalopram Oxalate ND 89356757534 10 MG Orally Once a day Active 1 tablet Benzonatate ND 64305501717 200 MG Orally Three times a day Active 1 capsule Allergy Shots NDC 0 Once a month Active 4 s hots Doxepin HCl ND 58472080370 5 % Externally Four times a day Active 1 application to affected area as needed Tylenol 8 Hour ND 05662734180 650 MG Orally As needed Active 2 tablets as needed HydrOXYzine HCl [facility] 82322084831 25 MG Orally every 8 hrs Active 1 tablet as needed Advair Diskus [facility] 55543369145 500-50 MCG/DOSE Inhalation Twice a day Active 1 puff Vital Signs Date/Time: Jan 05, 2018 BMI 35.52 Index Weight 188 lbs Height 61 in Temperature 98.3 F Cardiac Monitoring Heart Rate 96 /min Blood Pressure Diastolic 62 mm Hg Blood Pressure Systolic 110 mm Hg Results No Known Results Summary Purpose eClinicalWorks Submission
--- OUTSIDE RECORDS SUMMARY | 2019-10-18 12:32 | XMS REPORT ---
Author Author KRYSTAL Griffin Organization [employer] Address Unknown Phone Unavailable Care Team Providers Care Train Braker Name Role Phone Jignesh Griffin Unavailable Allergies [...]
--- OUTSIDE RECORDS SUMMARY | 2019-10-18 12:32 | XMS REPORT ---
Author Author KRYSTAL Zuniga Organization [employer] Address Unknown Phone Unavailable Care Team Providers Care Block Piler Name Role Phone Yves Zuniga Unavailable Allergies No Known Allergies Problems Problem [...] Date End Date Status Dosage Hydroxychloroquine Sulfate [facility] 05380030510 200 MG Orally twice a day May 27, 2019 Active 1 tablet with food o r milk Results No Known Results Summary Purpose eClinicalWorks Submission
--- OUTSIDE RECORDS SUMMARY | 2019-10-18 12:32 | XMS REPORT ---
Author Author KRYSTAL Griffin [facility] e[employer] Address Unknown Phone Unavailable Care Team Providers Care Tester Printed Circuit Boards Name Role Phone Jignesh Griffin CP Unavailable [...] Date End Date Status Dosage Hydroxychloroquine Sulfate [facility] 63949946198 200 MG Orally twice a day November 08, 2018 Active 1 tablet with food o r milk Results No Known Results Summary Purpose [employer]ClinicalWorks Submission
--- OUTSIDE RECORDS SUMMARY | 2019-10-18 12:32 | XMS REPORT ---
Author Author KRYSTAL Griffin Organization [employer] Address Unknown Phone Unavailable Care Team Providers Care Hot Baller Name Role Phone Jignesh Griffin CP Unavailable [...]
--- OUTSIDE RECORDS SUMMARY | 2019-10-18 12:32 | XMS REPORT ---
Author Author KRYSTAL Zuniga [facility], [place] eClinicalWorks Address Unknown Phone Unavailable Care Team Providers Care Bottle Carrier Name Role Phone Yves Zuniga Unavailable Allergies, Adverse Reactions, Alerts Substance Reaction Event Type Detrol Info Not Available Non Drug Allergy Penicillin shortness of breath Non Drug Allergy Problems Problem Type Condition Code Onset Dates Condition Statu s Assessment Acute pain of right knee M25.561 Act michael Assessment Rheumatoid arthritis involvi ng multiple sites with positive rheumatoid factor M05.79 Active Problem Acute pain of left knee M25.562 [...] Instructions Start Date End Date Status Dosage Allergy Shots NDC 0 Once a month Active 4 s hots Ibuprofen NDC 62722165958 200 MG Orally As needed Ac tive 1 tablet with food or milk as needed Caltrate 600+D NDC 43636563524 600-800 MG-UNIT Orally Once a day Active 1 tablet with a meal Tylenol 8 Hour NDC 13044027998 650 MG Orally As needed Active 2 tablets as needed HydrOXYzine HCl NDC 53567398960 25 MG Orally every 8 hrs Active 1 tablet as needed Potassium NDC 0 Oral Active 1 tab Escitalopram Oxalate NDC 52854321002 10 MG Orally Once a day Active 1 tablet Hydroxychloroquine Sulfate NDC 30354002607 200 MG Orally twice a day Jul 05, 2019 Active 1 tablet with food o r milk Medrol NDC 10147261150 4 MG Orally qAM Jun 07, 2019 Active 2 tablets with food or milk Magnesium NDC 43947837477 500 MG Orally Once a day A ctive 1 tablet with a meal Methotrexate ND 10837432441 2.5 MG Orally q weekly Jul 05, 2019 Active 8 tablets Losartan Potassium-HCTZ ND 56602948537 100-25mg Orally Once a day Active 1 tablet Folic Acid ND 58986164859 1 MG Orally Once a day September 09, 2018 Active 1 tablet Benzonatate ND 04703860242 200 MG Orally Three times a day Active 1 capsule Voltaren Gel NDC 0 1% Transdermal Four times a day Mar 28 9 Active apply to affected area Advair Diskus [facility] 80483186958 500-50 MCG/DOSE Inhalation Twice a day Active 1 puff Vital Signs Date/Time: Jul 05, 2019 BMI 35.72 Index Weight 192.2 lbs Height 61.5 in Temperature 98.0 F Cardiac Monitoring Heart Rate 72 /min Blood Pressure Diastolic 78 mm Hg Blood Pressure Systolic 140 mm Hg Results No Known Results Summary Purpose eClinicalWorks Submission
--- OUTSIDE RECORDS SUMMARY | 2019-10-18 12:32 | XMS REPORT ---
Author Author KRYSTAL Griffin Organization e[employer] Address Unknown Phone Unavailable Care Team Providers Care Manager Audio Name Role Phone Jignesh Griffin Unavailable Allergies [...]
--- OUTSIDE RECORDS SUMMARY | 2019-10-18 12:32 | XMS REPORT ---
Author Author KRYSTAL Griffin Organization [employer] Address Unknown Phone Unavailable Care Team Providers Care Manager Therapy Name Role Phone Jignesh Griffin Unavailable Allergies [...]
--- OUTSIDE RECORDS SUMMARY | 2019-10-18 12:32 | XMS REPORT ---
Author Author KRYSTAL Griffin Organization [employer] Address Unknown Phone Unavailable Care Team Providers Care Auto Garage Mechanic Name Role Phone Jignesh Griffin Unavailable Allergies [...]
--- OUTSIDE RECORDS SUMMARY | 2019-10-18 12:32 | XMS REPORT ---
Author Author KRYSTAL Griffin Organization [employer] Address Unknown Phone Unavailable Care Team Providers Care Environmental Planning Engineer Name Role Phone Jignesh Griffin CP Unavailable Allergies No Known Allergies Problems Problem Type Condition Code Onset Dates Condition Statu s Problem Pain in right shoulder M25.511 Activ e Problem Polyarthritis M13.0 Active Problem Polymyalgia rheumatica M35.3 Activ e Problem Positive PONCE (antinuclear antibody) R76.8 Active Medications No Known Medications Results No Known Results Summary Purpose eClinicalWorks Submission
--- OUTSIDE RECORDS SUMMARY | 2019-10-18 12:32 | XMS REPORT ---
Author Author KRYSTAL Griffin [facility] eClinicalWorks Address Unknown Phone Unavailable Care Team Providers Care Germ Drier Name Role Phone Jignesh Griffin CP Unavailable [...] Start Date End Date Status Dosage Medrol Dose [facility] 57586054190 4mg Orally once a day Mar 15, 2019 Active as directed Results No Known Results Summary Purpose eClinicalWorks Submission
--- OUTSIDE RECORDS SUMMARY | 2019-10-18 12:32 | XMS REPORT ---
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
--- OUTSIDE RECORDS SUMMARY | 2019-10-18 12:32 | XMS REPORT ---
Author Author KRYSTAL Griffin Organization [employer] Address Unknown Phone Unavailable Care Team Providers Care Side Panel Padder Name Role Phone Jignesh Griffin Unavailable Allergies No Known Allergies Problems Problem Type Condition Code Onset Dates Condition Statu s Assessment Pain in right shoulder M25.511 Activ e Problem Pain in right shoulder M25.511 Activ e Problem Polyarthritis M13.0 Active Problem Polymyalgia rheumatica M35.3 Activ e Assessment Polymyalgia rheumatica M35.3 Activ e Assessment Polyarthritis M13.0 Active Problem Positive PONCE (antinuclear antibody) R76.8 Active Assessment Positive PONCE (antinuclear antibody) R76.8 Active Medications No Known Medications Results No Known Results Summary Purpose eClinicalWorks Submission
--- OUTSIDE RECORDS SUMMARY | 2019-10-18 12:32 | XMS REPORT ---
Author Author KRYSTAL Griffin Organization [employer] Address Unknown Phone Unavailable Care Team Providers Care Chronometer Assembler Name Role Phone Jignesh Griffin Unavailable [...]
--- OUTSIDE RECORDS SUMMARY | 2019-10-18 12:32 | XMS REPORT ---
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
--- OUTSIDE RECORDS SUMMARY | 2019-10-18 12:32 | XMS REPORT ---
Author Author [facility] t Organization [facility] Address 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 Attphys Unavailable Sujit Griffin Attphys CANDIDO HILL Admphys Unavailable Payers Payer Name Policy Type Policy Number Effective Date Expiration Date Tricia mcdonald [facility] Medicare Complete [id number] 2019 00:00:[address] [facility] [place] [place] [id number] 2018 00:00:00 [facility] Problems Condition Name Condition Details Condition Category Status Onset Date Resolution Date Last Treatment Date Treating Clinician Comments Source M75.01 - ADHESIVE CAPSULITIS OF RIGHT S M75.01 - ADHESIVE CAPSULITIS OF RIGHT S Active 02/02/2019 [facility] [place] Diagnosis Active 2019-02-02 00:01:00 2019-07-26 07:42:00 [facility] [place] M75.121 - COMPLETE ROTATR-CUFF TEAR/RUPT M75.121 - COMPLETE ROTATR-CUFF TEAR/RUPT Active 11/02/2017 [facility] [place] Diagnosis Active 2017-11-02 00:01:00 2017-11-02 12:39:00 [facility] [place] ICD 840.4 840.7 726.2 [id number] ICD 840.4 840.7 726.2 [id number] Active 11/08/2012 [facility] Ac tive 2012-11-08 00:00:00 2012-11-12 05:27:00 M [facility] History of essential hypertension History of essential hypertens ion Problem Resolved [facility] Extremity pain Extremity pain Problem Active [facility] Acute cervical radiculopathy Acute cervical radiculopathy Problem Active [facility] Impingement syndrome of right shoulder Impingement syndrome of right shoulder Problem Active [facility] Adhesive bursitis of right shoulder Adhesive bursitis of right s h[place] Problem Active [facility] S/P arthroscopy of shoulder S/P arthroscopy of shoulder Problem Active [facility] Complete tear of right rotator cuff Complete tear of right rotat or cuff Problem Active [facility] H/O: RCT (rotator cuff tear) H/O: RCT (rotator cuff tear) Problem Active [facility] Charcot's joint of right shoulder Charcot's joint of right shoul yonathan Problem Active [facility] Syringomyelia Syringomyelia Problem Active [facility] Primary osteoarthritis of right shoulder Primary osteo arthritis of right shoulder Problem Active [facility] Rheumatoid arthritis of shoulder Rheumatoid arthritis of shoulde r Problem Active [facility] Other secondary osteoarthritis of right shoulder Other secondary osteoarthritis of right shoulder Problem Active [facility] Limb Pain Limb Pain Active 12/09/2012 [facility] Problem Active 2012-12-09 10:50:31 [place] [facility] Essential hypertension (disorder) Essential hypertension (disorder) Active Problem 03/06/2019 JERRY Garibay,[facility] [place] Problem Active 2019-03-06 22:55:08 OP ID [place], [facility] [place] Numbness of finger (finding) N umbness of finger (finding) Active Problem 03/06/2019 both si elva JACQUELINED [place],[facility] [place] Problem Active 2019-03-06 22:55:08 [facility] [place], [facility] [place] Dyspnea (finding) Dysp wally (finding) Active Problem 03/06/2019 on exertion JERRY [place],[facility] [place] Problem Active 2019-03-06 22:55:08 JERRY [place], [facility] [place] Numbness of finger Numb ness of finger Active Problem 02/18/2013 1both sides [facility] Problem Active 2013-02-18 20:28:45 [facility], [facility] Shortness of breath Shor tness of breath Active Problem 02/18/2013 2on exertion [facility] Problem Active 2013-02-18 20:28:45 [facility], [facility] Hypertension Hype rtension Active Problem 04/21/2013 JERRY Garibay,[facility] Problem Active 2013-04-21 21:41:51 JERRY Garibay, [facility], [facility] pain in right lateral side of arm pain in right lateral side of arm Active Problem 04/21/2013 JERRY Garibay,[facility] Problem Active 2013-04-21 21:41:51 JERRY Garibay, [facility], [facility] seasonal allergies seas onal allergies Active Problem 04/21/2013 [facility] Problem Active 2013-04-21 21:41:51 JERRY Garibay, [facility], [facility] Acute pain of left knee Acut e pain of left knee Active Problem 10/08/2019 Edinson Griffin Problem Active 2019-10-08 02 :46:23 Edinson Griffin Rheumatoid arthritis involving multiple sites with pos itive rheumatoid factor Rheumatoid arthritis involving multiple sites with positive rheumatoid factor Active Problem 10/08/2019 Edinson Griffin Problem Active 2019-10-08 02:46:23 Edinson Griffin Acute pain of right knee Acut e pain of right knee Active Problem 10/08/2019 Edinson Griffin Problem Active 2019-10-08 02 :46:23 Edinson Griffin Pain in right shoulder Pain in right shoulder Active Problem 10/08/2019 Edinson Griffin Problem Active 2019-10-08 02 :46:23 Edinson Griffin Polyarthritis Poly arthritis Active Problem 10/08/2019 Edinson Griffin Problem Active 2019-10-08 02:46:23 Edinson Griffin Positive PONCE (antinuclear antibody) Positive PONCE (antinuclear antibody) Active Problem 10/08/2019 Edinson Griffin Problem Ac tive 2019-10-08 02:46:23 Edinson mao Polymyalgia rheumatica Poly myalgia rheumatica Active Problem 10/08/2019 Edinson Griffin Problem Active 2019-10-08 02 :46:23 Edinson Griffin Encounter for long-term (current) use of high-risk med ication Encounter for long-term (current) use of high-risk medication Active Diagnosis 12/29/2018 Edinson Griffin Diagnosis Active 2018-12-29 02:45:56 Edinson Griffin Wrist pain, left Wris t pain, left Active Diagnosis 02/25/2018 Edinson Griffin Diagnosis Active 2018-02-25 02:47:22 Edinson Griffin Wrist pain, right Wris t pain, right Active Diagnosis 02/25/2018 Edinson Griffin Diagnosis Active 2018-02-25 02:47:22 Edinson Griffin Immunosuppressed status Immu nosuppressed status Active Problem 10/08/2019 Edinson Griffin Problem Active 2019-10-08 02 :46:23 Edinson Griffin SHOULDER SHOU LDER Active [facility] Active 2013-01-18 07:50:00 [facility] RT SHOULDER BUSITIS/IMPINGEMENT RT SHOULDER BUSITIS/IMPINGEMENT Active [facility] [place] Diagnosis Active 2015-10-23 14:43:00 [facility] [place] RT SHOULDER RT S HOULDER Active [facility] [place] Diagnosis Active 2015-12-28 13:45:00 [facility] [place] Allergies, Adverse Reactions, Alerts Allergy Name Allergy Type Status Severity Reaction(s) Onset Date Inacti ve Date Treating Clinician Comments Source Penicillin Penicillin Active shortness of breath 2019-08-30 00:00: 00 [facility] Penicillin Allergy to Substance Active Unknown RASH 2019-05-30 00:00:00 [facility] Naproxen Allergy to Substance Active Unknown RED SPOTS ON SK IN 2019-05-30 00:00:00 [facility] No Known Allergies DA Active U 2015-03-19 00:00:00 [facility] Not Known Not Known Active Anurag rial [facility] No Known Medication Allergies No Known Medication Allergies Active [facility] Social History Social Habit Start Date Stop Date Quantity Comments Source Social History 2016-01-27 04:59:00 2016-01-27 04:59:00 [facility] Smoking Status Start Date Stop Date Source Never smoker [facility] Medications Ordered Medication Name Filled Medication Name Start Date Stop Da te Current Medication? Ordering Clinician Indication Dosage Frequency Signature (SIG) Comments Components Source Hydroxychloroquine Sulfate 2019-10-07 00:00:00 Yes Taryn amanda Griffin 1 tablet with food or milk Edinson Griffin Losartan Potassium-HCTZ 2019-09-21 02:46:14 Yes Yves Zuniga 1 tablet Edinson Griffin Advair Diskus 2019-09-21 02:46:14 Yes Yves Zuniga 1 puff Edinson Griffin HydrOXYzine HCl 2019-09-21 02:46:14 Yes Yves Zuniga 1 tablet as needed Edinson Griffin Caltrate 600+D 2019-09-21 02:46:14 Yes Yves Zuniga 1 tablet with a meal Edinson Griffin Allergy Shots 2019-09-21 02:46:14 Yes Yves Zuniga 4 shots Edinson Griffin Escitalopram Oxalate 2019-09-21 02:46:14 Yes Yves Zuniga 1 tablet Edinson Griffin Potassium 2019-09-21 02:46:14 Yes Yves Zuniga 1 tab Edinson Griffin Trazodone HCl 2019-09-21 02:46:14 Yes Yves Zuniga 1 tablet at bedtime as needed Edinson Griffin Medrol 2019-07-18 00:00:00 Yes Yves Zuniga 2 tablets with food or milk Edinson Griffin Benzonatate 2019-07-09 03:45:39 Yes Yves Zuniga 1 capsule Edinson Griffin Tylenol 8 Hour 2019-07-09 03:45:39 Yes Yves Zuniga 2 tablets as needed Edinson Griffin Ibuprofen 2019-07-09 03:45:39 Yes Yves Zuniga 1 tablet with food or milk as needed Edinson Griffin Magnesium 2019-07-09 03:45:39 Yes Yves Zuniga 1 tablet with a meal Edinson Griffin Hydroxychloroquine Sulfate 2019-07-05 00:00:00 Yes Yves Zuniga 1 tablet with food or milk [facility] Griffin Methotrexate 2019-07-05 00:00:00 Yes Yves Zuniga 8 tablets Edinson Griffin Medrol 2019-06-07 00:00:00 Yes Yves Zuniga 2 tablets with food or milk Edinson Griffin Hydroxychloroquine Sulfate 2019-05-27 00:00:00 Yes Yves Zuniga 1 tablet with food or milk Edinson Griffin Voltaren Gel 2019-03-28 00:00:00 Yes Jignesh Griffin apply to affected area Edinson Griffin Methotrexate 2019-03-28 00:00:00 Yes Jignesh Griffin 5 tablets Edinson Griffin Voltaren Gel 2019-03-21 00:00:00 Yes Jignesh Griffin apply to affected area Edinson Griffin Medrol Dose Ronal 2019-03-15 00:00:00 Yes Jignesh Griffin as directed Edinson Griffin Multivitamin 2019-02-18 02:47:08 Yes Jignesh Griffin as directed Edinson Griffin Doxepin HCl 2018-12-29 02:45:56 Yes Wajeeha Joanna 1 application to affected area as needed Edinsonroberta Griffin Lidocaine-Prilocaine 2018-12-29 02:45:56 Yes Wajeeha You saf as directed Edinsonroberta Griffin Hydroxychloroquine Sulfate 2018-11-08 00:00:00 Yes Rajati p Griffin 1 tablet with food or milk Edinsonroberta Griffin PredniSONE 2018-11-05 00:00:00 Yes Jignesh Griffin 3 tablets Edinsonroberta Griffin Methotrexate 2018-09-09 00:00:00 Yes Jignesh Griffin 5 tablets Edinson Griffin Folic Acid 2018-09-09 00:00:00 Yes Yves Zuniga 1 tablet [facility] Griffin PredniSONE 2018-06-24 03:46:39 Yes Yarely Beaulieusaf 3 tablets [facility] Griffin Hydroxychloroquine Sulfate 2018-03-09 00:00:00 Yes Kiah Beaulieusaf 1 tablet with food or milk Edinson Griffin Aleve 2018-01-09 02:46:33 Yes Jignesh Griffin 1 tablet with food or milk as needed Edinson Griffin Pennsaid 2018-01-09 02:46:33 Yes Jignesh Griffin 2 applications to affected area Edinson Griffin PredniSONE 2018-01-05 00:00:00 Yes Jignesh Griffin 3 tablets Edinson Griffin COMPOUND MEDICATION COMPOUND MEDICATION 2015-10-02 00:00:00 Yes RYLIE GUAMAN M.D. antiinflammatory 1 APPLY 1 TO 2 GM TO AFFECTED AREA THREE TO FOUR TIMES DAILY [facility] Vimovo 500-20 MG Oral Tablet Delayed Release Vimovo 50 0-20 MG Oral Tablet Delayed Release 2015-10-02 00:00:00 Yes RYLIE GUAMAN M.D. 1 Q0.5D TAKE 1 TABLET TWICE DAILY [facility] methylPREDNISolone 4 MG Oral Tablet methylPREDNISolone 4 MG Oral Tablet 2015-09-04 00:00:00 Yes RYLIE GUAMAN M.D. ONE TA BLE TWICE DAILY [facility] Meloxicam 7.5 MG Oral Tablet Meloxicam 7.5 MG Oral Tablet 2015-06-25 6 00:00:00 Yes RYLIE GUAMAN M.D. TAKE 1 TABLET DAILY NEEDED . [facility] COMPOUND MEDICATION COMPOUND MEDICATION 2015-07-10 00:00:00 Yes RYLIE GUAMAN M.D. antiinflammatory [facility] COMPOUND MEDICATION 2015-06-12 00:00:00 Yes RYLIE GUAMAN M.D. antiinflammatory 1 use as directed [facility] COMPOUND MEDICATION COMPOUND MEDICATION 2015-06-12 00:00:00 Yes RYLIE GUAMAN M.D. antiinflammatory 1 [facility] No Active Medications 2012-12-09 10:50:31 Yes No Active Medications [place] [facility] fentanyl 2012-11-13 01:27:00 No Reji Isabella Vivek 25 microgram, Route: IV, ONCE, Dosing Weight 80, kg, PRN Pain, Start date: 11/12/12 20:27:00 [facility] fentanyl 2012-11-13 01:25:00 No Reji Mason Vivek 25 microgram, Route: IV, ONCE, Dosing Weight 80, kg, PRN Pain, Start date: 11/12/12 20:25:00 [facility] flumazenil 2012-11-12 15:32:00 No Rigoberto Gill 0.2 mg, Route: IVP, PRN, Dosing Weight 80, kg, PRN Benzodiazepine Reversal, Initial dose, Start date: 11/12/12 10:32:00, Duration: 30 day, Stop date: 12/12/12 10:31:00 [facility] hydromorphone 2012-11-12 15:32:00 No Rigoberto Denny im 0.5 mg, Route: IVP, Q5Min, Dosing Weight 80, kg, PRN Pain Score 7-10, Start date: 11/12/12 10:32:00, Duration: 5 doses or times, Stop date: Limited # of times [facility] fentanyl 2012-11-12 15:32:00 No Rigoberto Gill 25 microgram, Route: IVP, Q5Min, Dosing Weight 80, kg, PRN Pain Score 4-6, Start date: 11/12/12 10:32:00, Duration: 4 doses or times, Stop date: Limited # of times [facility] acetaminophen-hydrocodone 325 mg-5 mg oral tablet 15:32:00 No Rigoberto Gill 2 tab, Rout e: PO, Dosing Weight 80, kg, Q4H, PRN Pain Score 4-6, Start date: 11/12/12 10:32:00, Duration: 30 day, Stop date: 12/12/12 10:31:00 [facility] ondansetron 2012-11-12 15:32:00 No Rigoberto Gill 4 mg, Route: IVP, ONCE, Dosing Weight 80, kg, PRN Nausea & Vomiting, Start date: 11/12/12 10:32:00 [facility] naloxone 2012-11-12 15:32:00 No Rigoberto Gill 0.04 mg, Route: IVP, Q2MIN, Dosing Weight 80, kg, PRN Narcotic Reversal, Start date: 11/12/12 10:32:00, Duration: 8 doses or times, Stop date: Limited # of times [facility] Lactated Ringers Injection IV 1000 mL 2012-11-12 15:32:00 No Rigoberto Gill 1,000 mL, Rate: 50 ml/hr, Infuse over: 20 hr, Route: IV, Dosing Weight 80 kg, Total Volume: 1,000, Start date: 11/12/12 10:32:00, Duration: 30 day, Stop date: 12/12/12 10:31:00 [facility] Ancef + Sodium Chloride 0.9% IV 100 mL 2012-11-12 13:00:00 No Rylie Guaman Jr 2 gm, Route: IVP B, ONCALL, Dosing Weight 80, kg, Start date: 11/12/12 8:00:00, Duration: 1 day, Stop date: 11/13/12 7:59:00 [facility] Lactated Ringers IV 1,000 mL 2012-11-12 12:05:00 Olya Arora 1,000 mL, Rate: 25 ml/hr, Infuse over: 40 hr, Route: IV, Dosing Weight 80 kg, Total Volume: 1,000, Start date: 11/12/12 7:05:00, Duration: 1 day, Stop date: 11/13/12 7:04:00 [facility] Calcium Carbonate/Vitamin D3 (Caltrate 600 W-D Tablet) 1 Each Tablet Calcium Carbonate/Vitamin D3 (Caltrate 600 W-D Tablet) 1 Each Tablet Yes 1 Twice A Day [facility] Escitalopram Oxalate (Lexapro) 10 Mg Tablet Escitalopr am Oxalate (Lexapro) 10 Mg Tablet Yes 10 Daily [facility] Folic Acid Folic Acid Yes 1 Twice A Day [facility] Hydrocodone Bit/Acetaminophen (Crescent 7.5-325 Tablet) 1 Each Tablet Hydrocodone Bit/Acetaminophen (Crescent 7.5-325 Tablet) 1 Each Tablet Yes 1 Every 4 Hours as needed for Mild Pain (1-3) Or Fever>100.8 [facility] Hydroxychloroquine Sulfate 200 Mg Tablet Hydroxychloro quine Sulfate 200 Mg Tablet Yes 200 Twice A Day [facility] Hydroxyzine Hcl 25 Mg Tablet Hydroxyzine Hcl 25 Mg Tablet Y es 25 Daily [facility] Losartan/Hydrochlorothiazide (Losartan-Hctz 100-25 Mg Tab) 1 Each Tablet Losartan/Hydrochlorothiazide (Losartan-Hctz 100-25 Mg Tab) 1 Each Tablet Yes 1 Daily [facility] Methotrexate Sodium (Methotrexate) 2.5 Mg Tablet Metho trexate Sodium (Methotrexate) 2.5 Mg Tablet Yes 12.5 Q Weekly [facility] Amlodipine Besylate 10 Mg Tablet, 1 Tab Oral Amlodipin e Besylate 10 Mg Tablet, 1 Tab Oral 2019-05-30 00:00:00 No 1 Daily [facility] Amlodipine Besylate (Norvasc) 10 Mg Tab, 10 Mg Oral Am lodipine Besylate (Norvasc) 10 Mg Tab, 10 Mg Oral 2019-05-30 00:00:00 No 10 Daily [facility] Benzonatate 200 Mg Capsule, 200 Mg Oral Benzonatate 200 Mg C apsule, 200 Mg Oral 2019-05-30 00:00:00 No 200 [facility] Benzonate , Benzonate , 2019-05-30 00:00:00 No [facility] Fluticasone/Salmeterol (Advair 100-50 Diskus) 1 Each D isk.w.dev, 1 Inhalation Fluticasone/Salmeterol (Advair 100-50 Diskus) 1 Each Disk.w.dev, 1 Inhalation 2019-05-30 00:00:00 No 1 as needed [facility] Vital Signs Vital Name Observation Time Observation Value Comments Source Weight 2019-08-30 13:00:00 Edinson Griffin Height 2019-08-30 13:00:00 Edinson Griffin Temperature Oral (F) 2019-08-30 13:00:00 98 F Edinson Griffin Heart Rate 2019-08-30 13:00:00 Edinson Griffin Diastolic (mm Hg) 2019-08-30 13:00:00 Phi lena Griffin Systolic (mm Hg) 2019-08-30 13:00:00 Rajat Griffin Weight 2019-07-05 14:00:00 Edinson Griffin Height 2019-07-05 14:00:00 Edinson Griffin Temperature Oral (F) 2019-07-05 14:00:00 98.0 F Edinson Griffin Heart Rate 2019-07-05 14:00:00 Edinson Griffin Diastolic (mm Hg) 2019-07-05 14:00:00 Phi llip Griffin Systolic (mm Hg) 2019-07-05 14:00:00 Rajat lip Griffin Weight 2019-02-03 16:30:00 Edinson Griffin Height 2019-02-03 16:30:00 Edinson Griffin Temperature Oral (F) 2019-02-03 16:30:00 98.5 F Edinson Griffin Heart Rate 2019-02-03 16:30:00 Edinson Griffin Diastolic (mm Hg) 2019-02-03 16:30:00 Phi llip Griffin Systolic (mm Hg) 2019-02-03 16:30:00 Rajat lip Griffin Weight 2018-12-23 16:45:00 Edinson Griffin Height 2018-12-23 16:45:00 Edinson Griffin Temperature Oral (F) 2018-12-23 16:45:00 98.4 F Edinson Griffin Heart Rate 2018-12-23 16:45:00 Edinson Griffin Diastolic (mm Hg) 2018-12-23 16:45:00 Phi llip Griffin Systolic (mm Hg) 2018-12-23 16:45:00 Rajat lip Griffin Weight 2018-06-14 15:00:00 Edinson Griffin Height 2018-06-14 15:00:00 Edinson Griffin Temperature Oral (F) 2018-06-14 15:00:00 97.9 F Edinson Griffin Heart Rate 2018-06-14 15:00:00 Edinson Griffin Diastolic (mm Hg) 2018-06-14 15:00:00 Phi llip Griffin Systolic (mm Hg) 2018-06-14 15:00:00 Rajat lip Griffin Weight 2018-06-01 20:15:00 Edinson Griffin Height 2018-06-01 20:15:00 Edinson Griffin Temperature Oral (F) 2018-06-01 20:15:00 98.1 F Edinson Griffin Heart Rate 2018-06-01 20:15:00 Edinson Griffin Diastolic (mm Hg) 2018-06-01 20:15:00 Phi llip Griffin Systolic (mm Hg) 2018-06-01 20:15:00 Rajat lip Griffin Weight 2018-03-09 20:45:00 Edinson Griffin Height 2018-03-09 20:45:00 Edinson Griffin Temperature Oral (F) 2018-03-09 20:45:00 98.3 F Edinson Griffin Heart Rate 2018-03-09 20:45:00 Edinson Griffin Diastolic (mm Hg) 2018-03-09 20:45:00 Phi llip Griffin Systolic (mm Hg) 2018-03-09 20:45:00 Rajat lip Griffin Weight 2018-01-05 18:30:00 Edinson Griffin Height 2018-01-05 18:30:00 Edinson Griffin Temperature Oral (F) 2018-01-05 18:30:00 98.3 F Edinson Griffin Heart Rate 2018-01-05 18:30:00 Edinson Griffin Diastolic (mm Hg) 2018-01-05 18:30:00 Phi llip Griffin Systolic (mm Hg) 2018-01-05 18:30:00 Rajat lip Griffin Systolic (mm Hg) 2012-11-12 16:30:00 [facility] Diastolic (mm Hg) 2012-11-12 16:30:00 [facility] Systolic (mm Hg) 2012-11-12 16:15:00 [facility] Diastolic (mm Hg) 2012-11-12 16:15:00 [facility] Diastolic (mm Hg) 2012-11-12 16:00:00 [facility] Systolic (mm Hg) 2012-11-12 16:00:00 [facility] Respitory Rate 2012-11-12 15:30:00 [facility] Respitory Rate 2012-11-12 15:15:00 [facility] Respitory Rate 2012-11-12 15:00:00 [facility] Height 2012-11-12 12:05:00 162.56 cm [facility] Weight 2012-11-12 12:05:00 [facility] Heart Rate 2012-11-12 11:30:00 [facility] Temperature Oral (F) 2012-11-12 11:30:00 97.9 F [facility] Procedures Procedure Date / Time Performed Performing Clinician [facility] e Total replacement of left knee joint 2019-05-31 00:00:00 RYLIE HAQ [facility] MR Shoulder w contrast [id number] 2019-03-03 00:00:00 [facility] X-ray of chest, two views 2019-02-04 00:00:00 SANDRA PISANO [facility] [U] XRAY SHOULDER MIN 2 VWS RIGHT [id number] 2019-02-01 00:00:00 [facility] MR Shoulder w contrast [id number] 2019-02-01 00:00:00 [facility] MRI Spine cervical wo contrast [id number] 2017-11-24 00:00:00 [facility] [U] XRAY SHOULDER MIN 2 VWS RIGHT [id number] 2017-10-20 00:00:00 [facility] MR Shoulder w contrast [id number] 2017-10-20 00:00:00 [facility] Cholecystectomy 2012-03-25 05:00:00 JERRY Millard andrew, [facility] [place] History of Knee Arthroscopy (Therapeutic) [facility] History of Shoulder Surgery [facility] Arthroscopy and drilling of knee JERRY Garibay, [facility] [place] Bilateral tubal ligation JERRY [place], [facility] [place] Plan of Care Planned Activity Planned Date Details Comments Source Future Scheduled Test Plan of Care [code = 40160-5] [facility] Encounters Start Date/Time End Date/Time Encounter Type Admission Type Attendi [facility] Care Department Encounter ID Source 2019-10-06 20:17:00 2019-10-06 20:17:00 Outpatient Jignesh BARRETT [id number] Edinson Griffin MD 2019-10-06 20:03:00 2019-10-06 20:03:00 Outpatient Jignesh BARRETT [id number] YARELY Griffin MD 2019-08-30 08:00:00 2019-08-30 08:00:00 Outpatient Jignesh BARRETT [id number] YARELY Griffin MD 2019-08-16 05:17:00 2019-08-16 05:17:00 Outpatient Jignesh Griffin MD [place] [id number] Edinson Griffin MD 2019-07-18 10:53:00 2019-07-18 10:53:00 Outpatient Jignesh Griffin MD PA [id number] Edinson Griffin MD 2019-07-10 09:54:00 2019-07-10 09:54:00 Outpatient Jignesh Griffin MD PA [id number] Edinson Griffin MD 2019-07-05 09:01:00 2019-07-05 09:01:00 Outpatient MD ARNOLD Duval MD PA [id number] Edinson Griffin MD 2019-07-05 08:00:00 2019-07-05 08:00:00 Outpatient Jignesh Griffin MD PA [id number] Edinson Griffin MD 2019-07-01 15:54:00 2019-07-01 15:54:00 Outpatient MD ARNOLD Duval MD PA [id number] Edinson Griffin MD 2019-06-30 10:30:00 2019-06-30 10:30:00 Outpatient Jignesh Griffin MD PA [id number] Edinson Griffin MD 2019-06-30 10:24:00 2019-06-30 10:24:00 Outpatient Jignesh Griffin MD PA [id number] Edinson Griffin MD 2019-06-27 10:57:00 2019-06-27 10:57:00 Outpatient Jignesh Griffin MD PA [id number] Edinson Griffin MD 2019-06-07 10:36:00 2019-06-07 10:36:00 Outpatient Jignesh Griffin MD PA [id number] Edinson Griffin MD 2019-05-31 09:25:00 2019-06-01 13:55:00 Discharged Inpatient (obs) 3 RYLIE HAQ [facility] [id number] [facility] 2019-05-20 18:45:00 2019-05-20 18:45:00 Outpatient Jignesh BARRETT [id number] Edinson Griffin MD 2019-05-12 10:08:00 2019-05-12 10:08:00 Outpatient Jignesh BARRETT [id number] Edinson Griffin MD 2019-05-11 06:05:00 2019-05-11 06:05:00 Outpatient Jignesh BARRETT [id number] Edinson Griffin MD 2019-05-05 09:27:00 2019-05-05 09:27:00 Outpatient MD ARNOLD Duval MD [place] [id number] Edinson Griffin MD 2019-05-01 10:01:00 2019-05-01 10:01:00 Outpatient MD ARNOLD Duval MD PA [id number] Edinson Griffin MD 2019-05-01 10:01:00 2019-05-01 10:01:00 Outpatient Jignesh BARRETT [id number] Edinson Griffin MD 2019-03-29 08:03:00 2019-03-29 08:03:00 Outpatient Jignesh BARRETT [id number] Edinson Griffin MD 2019-03-28 08:54:00 2019-03-28 08:54:00 Outpatient MD ARNOLD Duval MD PA [id number] Edinson Griffin MD 2019-03-24 14:13:00 2019-03-24 14:13:00 Registered Clinic [address] [facility] [id number] [facility] 2019-03-21 19:35:00 2019-03-21 19:35:00 Outpatient Jignesh Griffin MD PA [id number] Edinson Griffin MD 2019-03-20 13:11:00 2019-03-20 13:11:00 Outpatient Jignesh Girffin MD [place] [id number] Edinson Griffin MD 2019-03-20 12:56:00 2019-03-20 12:56:00 Outpatient Jignesh BARRETT [id number] Edinson Griffin MD 2019-03-16 07:15:00 2019-03-16 07:15:00 Outpatient Jignesh BARRETT [id number] Edinson Griffin MD 2019-03-16 07:07:00 2019-03-16 07:07:00 Outpatient Jignesh BARRETT [id number] Edinson Griffin MD 2019-03-15 15:49:00 2019-03-15 15:49:00 Outpatient Jignesh BARRETT [id number] Edinson Griffin MD 2019-03-04 17:12:00 2019-03-05 04:59:00 Outpt Diag Services [facility] Out[facility] - [place] [id number] [facility] [place] 2019-03-04 12:12:00 2019-03-04 23:59:00 Outpatient Rylie Guaman [facility] [id number] 2019-02-18 13:24:00 2019-02-18 13:24:00 Outpatient MD ARNOLD Finn MD PA [id number] Edinson Griffin MD 2019-02-04 11:33:00 2019-02-04 11:33:00 Registered Clinic 3 [facility] [id number] [facility] 2019-02-03 11:30:00 2019-02-03 11:30:00 Outpatient Jignesh BARRETT [id number] YARELY Griffin MD 2019-02-01 16:31:00 2019-02-01 16:31:00 Outpatient MD ARNOLD Finn MD PA [id number] YARELY Griffin MD 2019-02-01 13:16:00 2019-02-01 13:16:00 Outpatient MD ARNOLD Finn MD PA [id number] YARELY Griffin MD 2019-02-01 11:15:00 2019-02-01 11:15:00 Appointment; RYLIE GUAMAN M.D. CRUMBIE, DAVID, M.D. [facility] [id number] [facility] 2018-12-23 11:45:00 2018-12-23 11:45:00 Outpatient Jignesh BARRETT [id number] Edinson Griffin MD 2018-11-19 15:05:00 2018-11-19 15:05:00 Outpatient Jignesh Griffin MD PA [id number] Edinson Griffin MD 2018-11-19 10:08:00 2018-11-19 10:08:00 Outpatient Jignesh BARRETT [id number] Edinson Griffin MD 2018-11-07 22:51:00 2018-11-07 22:51:00 Outpatient Jignesh Griffin MD PA [id number] Edinson Griffin MD 2018-11-04 17:20:00 2018-11-04 17:20:00 Outpatient Jignesh Griffin MD PA [id number] Edinson Griffin MD 2018-09-27 11:32:00 2018-09-27 11:32:00 Outpatient Jignesh Griffin MD PA [id number] Edinson Griffin MD 2018-09-10 14:00:00 2018-09-11 04:59:00 Outpt Diag Services [facility] Out[facility] [place] [id number] MH [facility] [place] 2018-09-10 09:00:00 2018-09-10 23:59:00 Outpatient Amanda Griffin [facility] [id number] 2018-06-14 09:00:00 2018-06-14 09:00:00 Outpatient Jignesh Griffin MD PA [id number] Edinson Griffin MD 2018-06-01 15:15:00 2018-06-01 15:15:00 Outpatient Jignesh Griffin MD PA [id number] Edinson Griffin MD 2018-06-01 14:15:00 2018-06-01 14:15:00 Outpatient Jignesh BARRETT [id number] Edinson Griffin MD 2018-03-09 14:45:00 2018-03-09 14:45:00 Outpatient Jignesh BARRETT [id number] Edinson Griffin MD 2018-02-17 08:03:00 2018-02-17 08:03:00 Outpatient Jignesh Griffin MD PA [id number] Edinson Griffin MD 2018-01-19 12:13:00 2018-01-19 12:13:00 Outpatient Jignesh Griffin MD PA [id number] Edinsno Griffin MD 2018-01-13 13:57:00 2018-01-13 13:57:00 Outpatient Jignesh BARRETT [id number] Edinson Griffin MD 2018-01-09 12:13:00 2018-01-09 12:13:00 Outpatient Jignesh Griffin MD PA [id number] Edinson Griffin MD 2018-01-05 13:30:00 2018-01-05 13:30:00 Outpatient Jignesh Griffin MD PA [id number] Edinson Griffin MD 2017-12-08 12:45:00 2017-12-08 12:45:00 Appointment; RYLIE GUAMAN M.D. CRUMBIE, DAVID, M.D. [facility] [id number] [facility] 2017-12-03 18:30:00 2017-12-04 04:59:00 Outpt Diag Services [facility] Out[facility] - [place] [id number] MH [facility] [place] 2017-12-03 13:30:00 2017-12-03 23:59:00 [id number] 2017-11-24 12:45:00 2017-11-24 12:45:00 Appointment; RYLIE GUAMAN M.D. CRUMBIE, DAVID, M.D. [facility] Orthopedics at [facility] [id number] [facility] 2017-11-02 17:30:00 2017-11-03 04:59:00 Outpt Diag Services [facility] Outpatient [facility] - [place] [id number] [facility] [place] 2017-11-02 12:30:00 2017-11-02 23:59:00 [facility] [id number] 2017-10-20 10:15:00 2017-10-20 10:15:00 Appointment; RYLIE GUAMAN M.D. CRUMBIE, DAVID, M.D. [facility] Orthopedics at [facility] [id number] [facility] 2016-07-29 11:15:00 2016-07-29 11:15:00 Appointment; RYLIE GUAMAN M.D. CRUMBIE, DAVID, M.D. [facility] [id number] [facility] 2015-12-28 18:00:00 2016-01-27 04:59:00 OP Therapy Patients [facility] [place] [id number] [facility] [place] 2015-12-28 13:00:00 2016-01-26 23:59:00 Outpatient Rylie Guaman [id number] 2015-11-20 16:54:00 2015-12-20 04:59:00 OP Therapy Patients [facility] [place] [id number] [facility] [place] 2015-11-20 11:54:00 2015-12-19 23:59:00 Outpatient Rylie Guaman [id number] 2015-10-19 18:35:00 2015-11-18 04:59:00 OP Therapy Patients [facility] [place] [id number] [facility] [place] 2015-10-19 13:35:00 2015-11-17 23:59:00 Outpatient Rylie Guaman [id number] 2013-04-19 12:32:00 2013-04-19 23:59:00 Outpatient MHIEA LT [facility] [id number] [facility] Outpatient Imaging - [place] 2013-01-18 07:49:00 2013-01-18 07:49:00 TH [facility] [id number] [facility] 2012-12-16 10:55:00 2012-12-16 10:55:00 [address] [facility] [id number] [facility] 2012-12-13 13:15:00 2012-12-09 10:50:31 POP, Provider: RYLIE LERMA, Status: Pen, Time: 1:15 PM [facility] [id number] [facility] 2012-12-09 05:50:51 2012-12-09 10:50:31 AUDIT [facility] [id number] [place] [facility] 2012-12-09 05:50:51 2012-12-09 05:50:31 Outpatient MHIEA LT [facility] [id number] 2012-11-15 14:27:00 2012-11-15 14:27:[address] [facility] [id number] [facility] 2012-11-12 05:19:00 2012-11-12 12:00:00 DS [facility] [id number] [facility] 2012-11-08 14:30:00 2012-10-30 08:47:48 POP, Provider: RYLIE LERMA, Status: Pen, Time: 2:30 PM [facility] [id number] [facility] 2012-11-05 08:30:00 2012-10-30 08:47:48 U89, Provider: RYLIE LERMA, Status: Pen, Time: 8:30 AM [facility] [id number] [facility] 2012-10-30 03:48:06 2012-10-30 08:47:48 AUDIT [facility] [id number] [place] [facility] 2012-10-30 03:48:06 2012-10-30 03:47:48 Outpatient MHIEA LT [facility] [id number] 2012-09-21 10:44:01 2012-09-21 15:44:01 AUDIT [facility] [id number] [place] [facility] 2012-09-21 10:44:01 2012-09-21 10:44:01 Outpatient MHIEA LT [facility] [id number] Results Test Description Test Time Test Comments Results Result Comments Source CHEST 2 VIEWS 2019-09-30 11:15:00 [place] [address] Patient Name: KRYSTAL YUN MR #: [id number] : 1950 Age/Sex: 69/F Req #: [id number] Adm Physician: Ordered by: ALIYA GIBBONS, SANDRA Shah MD Report #: [id number] Location: [facility] Room/Bed: Procedure: [id number] DX/CHEST 2 VIEWS Exam Date: 09/30/19 Exam Time: 1000 REPORT STATUS: Signed X-ray chest PA and lateral History: Preop Findings: Normal cardiomediastinal silhouettes. No pleural effusion or pneumothorax. Lung bonner show no focal disease. Thoracic kyphosis. Osteopenia. 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 Cholecystectomy clips. Impression: No acute cardiopulmonary disease. Signed by: Orestes Lemon MD on 09/30/2019 11:16 AM Dictated By: ORESTES LEMON MD 1116 Transcribed By: LOLA on 09/30/191115 COPY TO: SANDRA PISANO Hemoglobin 2019-06-01 05:53:00 Test Item Hemoglobin (test code = 67261-1) 9.2 12.0-16.0 [facility] Hospital[facility]ematocrit2020-01-08 05:53:00* Test Item Value Reference Range Interpretation Comments Hematocrit (test code = 4544-3) 29.1 34.2-44.1 [facility] HospitalKNEE LEFT 1-2 [id number] 10:24:00 [facility] [address] [address] Patient Name: KRYSTAL YUN MR #: [id number] : 1950 Age/Sex: 69/F Req #: [id number] Adm Physician: Ordered by: RYLIE HAQ MD Report #: [id number] Location: OR Room/Bed: Procedure: [id number] DX/ KNEE LEFT 1-2 VIEWS Exam Date: Exam Time: REPORT STATUS: Signed EXAM: KNEE LEFT 1- 2 VIEWS DATE: 05/31/2019 9:22 AM INDICATION: Postop COMPARISON: 03/24/2019 FINDINGS: AP and crosstable lateral views obtained of the left knee. There are postsurgical changes from recent left knee arthroplasty. Wang rdware appears intact and in anatomic alignment. There is no evidence for acut e fracture or dislocation. Expected subcutaneous air and joint effusion noted. Overlying skin harriett noted. IMPRESSION: Expected postsurgical changes from recent left knee arthroplasty. Signed by: Dr. Clarke Swift MD on 05/31/2019 10:25 AM Dictated By: CLARKE SWIFT MD 1025 Transcribed By: LOLA on 05/31/19 1025 COPY TO: RYLIE HAQ MD Potassium Juwci1344-22-88 06:38:00* Test Item Value Reference Range Interpretation Comments Potassium Level (test code = 2823-3) 3.5 3.5-5.1 [facility] HospitalPlatelet Morphology Tzjzczs7404-78-76 12:48:00* Test Item Value Reference Range Interpretation Comments Platelet Morphology Comment (test code = 83760-6) NO EDTA PLT CLUMP [facility] Ecxsz8135-69-62 10:48:00* Test Item Value Reference Range Interpretation Comments Sodium Level (test code = 2951-2) 140 136-145 [facility] HospitalChloride Kapsz4021-31-61 10:48:00* Test Item Value Reference Range Interpretation Comments Chloride Level (test code = 2075-0) 103 98-107 [facility] HospitalCarbon Dioxide Chmkr8016-68-62 10:48:00* Test Item Value Reference Range Interpretation Comments Carbon Dioxide Level (test code = 2028-9) 27 22-29 [facility] HospitalAnion Kpj4647-10-11 10:48:00* Test Item Value Reference Range Interpretation Comments Anion Gap (test code = 38033-7) 12.8 8-16 [facility] HospitalBlood Urea Hwjdftjh0926-84-40 10:48:00* Test Item Value Reference Range Interpretation Comments Blood Urea Nitrogen (test code = 3094-0) 8 7-26 [facility] HospitalCreatinine2020-01-06 10:48:00* Test Item Value Reference Range Interpretation Comments Creatinine (test code = 2160-0) 0.62 0.57-1.11 [facility] HospitalBUN/Creatinine Femue8469-19-24 10:48:00* Test Item Value Reference Range Interpretation Comments BUN/Creatinine Ratio (test code = 3097-3) 13 6-25 [facility] HospitalEstimat Glomerular Filtration Rate 2019-05-30 10:48:00* Test Item Value Reference Range Interpretation Comments Estimat Glomerular Filtration Rate (test code = 670316507) > 60 >60 Ranges were taken from the National Kidney Disease Education Program and the [facility] Kidney Foundation literature.Reference ranges:60 or greater: Fdaylf35-81 ( for 3 consecutive months): Chronic kidney disease 15 or less: Kidney failureAudie L. Murphy Memorial VA HospitalGlucose Qegtl9807-39-28 10:48:00* Test Item Value Reference Range Interpretation Comments Glucose Level (test code = WSL3318) 88 74-118 [facility] HospitalCalcium Isypj8037-77-72 10:48:00* Test Item Value Reference Range Interpretation Comments Calcium Level (test code = 16532-3) 9.6 8.4-10.2 [facility] HospitalWhite Blood Zmodw6356-51-92 10:19:00* Test Item Value Reference Range Interpretation Comments White Blood Count (test code = 6690-2) 6.36 4.8-10.8 [facility] HospitalRed Blood Uyuzo5300-49-59 10:19:00* Test Item Value Reference Range Interpretation Comments Red Blood Count (test code = 789-8) 4.04 3.6-5.1 [facility] HospitalMean Corpuscular Rpzhmx0455-15-08 10:19:00* Test Item Value Reference Range Interpretation Comments Mean Corpuscular Volume (test code = 787-2) 89.6 81-99 [facility] HospitalMean Corpuscular Owqpocgdct7894-71-20 10:19:00* Test Item Value Reference Range Interpretation Comments Mean Corpuscular Hemoglobin (test code = 785-6) 28.0 28-32 [facility] HospitalMean Corpuscular Hemoglobin Concent 2019-05-30 10:19:00* Test Item Value Reference Range Interpretation Comments Mean Corpuscular Hemoglobin Concent (test code = 786-4) 31.2 31-35 [facility] HospitalRed Cell Distribution Jqowp1228-31-32 10:19:00* Test Item Value Reference Range Interpretation Comments Red Cell Distribution Width (test code = 98563-6) 14.6 11.7 -14.4 [facility] HospitalPlatelet Dkarr9856-67-48 10:19:00* Test Item Value Reference Range Interpretation Comments Platelet Count (test code = 777-3) 313 140-360 [facility] HospitalNeutrophils (%) (Auto)2019-05-30 10:19:00 * Test Item Value Reference Range Interpretation Comments Neutrophils (%) (Auto) (test code = 58417-2) 74.6 38.7-80.0 [facility] HospitalLymphocytes (%) (Auto)2019-05-30 10:19:00 * Test Item Value Reference Range Interpretation Comments Lymphocytes (%) (Auto) (test code = 736-9) 13.2 18.0-39.1 [facility] HospitalMonocytes (%) (Auto)2019-05-30 10:19:00* Test Item Value Reference Range Interpretation Comments Monocytes (%) (Auto) (test code = 5905-5) 8.8 4.4-11.3 [facility] HospitalEosinophils (%) (Auto)2019-05-30 10:19:00 * Test Item Value Reference Range Interpretation Comments Eosinophils (%) (Auto) (test code = 713-8) 2.7 0.0-6.0 [facility] HospitalBasophils (%) (Auto)2019-05-30 10:19:00* Test Item Value Reference Range Interpretation Comments Basophils (%) (Auto) (test code = 706-2) 0.5 0.0-1.0 [facility] HospitalIM GRANULOCYTES %2019-05-30 10:19:00* Test Item Value Reference Range Interpretation Comments IM GRANULOCYTES % (test code = IM GRANULOCYTES %) 0.2 0.0- 1.0 [facility] HospitalNeutrophils # (Auto)2019-05-30 10:19:00* Test Item Value Reference Range Interpretation Comments Neutrophils # (Auto) (test code = 751-8) 4.8 2.1-6.9 [facility] HospitalLymphocytes # (Auto)2019-05-30 10:19:00* Test Item Value Reference Range Interpretation Comments Lymphocytes # (Auto) (test code = 68235-6) 0.8 1.0-3.2 [facility] HospitalMonocytes # (Auto)2019-05-30 10:19:00* Test Item Value Reference Range Interpretation Comments Monocytes # (Auto) (test code = 742-7) 0.6 0.2-0.8 [facility] HospitalEosinophils # (Auto)2019-05-30 10:19:00* Test Item Value Reference Range Interpretation Comments Eosinophils # (Auto) (test code = 711-2) 0.2 0.0-0.4 [facility] HospitalBasophils # (Auto)2019-05-30 10:19:00* Test Item Value Reference Range Interpretation Comments Basophils # (Auto) (test code = 704-7) 0.0 0.0-0.1 [facility] HospitalAbsolute Immature Granulocyte (auto 2019-05-30 10:19:00* Test Item Value Reference Range Interpretation Comments Absolute Immature Granulocyte (auto (james t code = Absolute Immature Granulocyte (auto) 0.01 0-0.1 [facility] HospitalKNEE THREE VIEWS UAHGNPZUA7347-24-12 15:43:00 [place] [address] Patient Name: KRYSTAL YUN MR #: [id number] : 1950 Age/Sex: 69/F Req #: [id number] Adm Physician: Ordered by: ALIYA GIBBONS, SANDRA Shah MD Report #: [id number] Location: [facility] Room/Bed: Procedure: 44 DX/KNEE THREE VIEWS BILATERAL Exam Date: 03/24/19 Exam Time: 1445 REPORT STATUS: Sig linnea EXAMINATION: KNEE THREE VIEWS BILATERAL INDICATION: Bilateral k nee pain COMPARISON: None FINDINGS: AP lateral and oblique i mages of both knees were obtained. Right: No acute fracture or dislocation. Alignment is anatomic. Moderate suprapatellar joint effusion. Milder compartm ental degenerative changes. Left: No acute fracture or dislocation. Alignme nt is anatomic. Moderate suprapatellar joint effusion. Minimal degenerative ch anges. IMPRESSION: No acute osseous injury. Mild right and minimal left degenerative changes. Moderate suprapatellar joint effusions of both k nees. Signed by: Iain Najera MD on 03/24/2019 3:45 PM Dictated By: IAIN NAJERA MD 44 Transcr ibed By: LOLA on 03/24/19 COPY TO: SANDRA PISANO,QMUWEP4524-83-20 16:04:00 RUN DATE: 03/15/19 [place] - Lab PAGE 1 RUN TIME: 1605 Specimen Inqui ry RUN USER: INTERFACE PATIENT: KRYSTAL YUN ACCT #: [id number] LOC: 365 doc[facility]LAB U #: [id number] AGE/SX: 69/F ROOM: RE03/11/19REG DR: Roberto Oswald MD : [birth year] BED: DIS: STATUS: REG REF TLOC: SPEC #: [id number] RECD: 03/14/19 STATUS: MARTÍN REQ #: [id number] RAHEL: 03/11/[address]: Roberto Oswald MD ENTERED: 03/14/19 SP TYPE: BX TONGUE OTHR DR: ORDERED: GROSS PROCEDURES: GROSS (03/15/19) TISSUES: TONGUE, NOS - RIGHT LATERAL LESION BX CLINICAL HISTORY RAHEL ECTION DATE: 03/11/19 LESION RIGHT LATERAL TONGUE FINAL DIAGNOSIS Right lateral tongue, lesion, excision: ORAL FIBROMA NEGATIVE FOR MALIGNANCY DMW/sm D 13873 MACROSCOPIC The specime n is received in formalin and labeled with the patient's name. It is identifi ed as "lesion right tongue". It consist of a rahman biopsy fragment measuring 0. 25 x 0.2 x 0.2 cm. GROSS PERFORMED AT [facility] [address] [place] [address] 77504 (p )[phone] MICROSCOPIC All of the stains, including any controls performed, stain appropriately. MICROSCOPIC PERFORMED AT [facility] [address] [place] [address] CONTINUED ON NEXT PAGE RUN DATE: 03/15/19 [place] - Lab PAGE 2 RUN TIME: 1605 Specimen Inquiry RUN USER: INTER FACE SPEC #: [id number] PATIENT: KRYSTAL YUN #[id number] (Con tinued) MICROSCOPIC (Continued) СВЕТЛАНА, X 52795 (P)[phone] PERFORMING SITE Diagnosis performed at: [facility], [place] [address] [place] [address] -------- ---- Signed SIGNATURE ON FILE Crys Gonsalves MD 1605 END OF REPORT CHEST 2 [id number] 12:16:00 [facility] [address] [place], [place] [address] Patient Name: KRYSTAL YUN MR #: [id number] : 1950 Age/Sex: 69/F Req #: [id number] Adm Physician: Ordered by: SANDRA PISANO MD, MD Report #: [id number] Location: [facility] Room/Bed: Procedure: DX/CHEST 2 VIEWS Exam Date: 02/04/19 Exam Time: 1 200 REPORT STATUS: Signed Exam: Chest radiograph Clinical History: Preoperative clearance Findings: The cardiomediastinal silhouette and lungs are normal. The regional skeleton and soft tissue are unremarkable. There is no evidence of pleural effusion or pneumothorax. Impression: No radiographic evidence of acute cardiop ulmonary disease. Signed by: Dr. Marlo Walsh MD on 02/04/2019 12:16 PM Dictated By: LAMIN WALSH MD 15 Transcribed By: LOLA on 02/04/191215 COPY TO: SANDRA DUTTON [U] XRAY SHOULDER MIN 2 VWS RIGHT [id number] 11:28:00 Images acquired, not reported on this accession number.[facility][U] XRAY SHOULDER MIN 2 VWS RIGHT [id number] 10:25:00Images acquired, not reported on this accession number.[facility]
--- OUTSIDE RECORDS SUMMARY | 2019-10-18 12:32 | XMS REPORT ---
Author Author KRYSTAL Griffin Organization [employer] Address Unknown Phone Unavailable Care Team Providers Care Wage Conciliator Name Role Phone Jignesh Griffin CP Unavailable [...]
--- OUTSIDE RECORDS SUMMARY | 2019-10-18 12:32 | XMS REPORT ---
Author Author KRYSTAL Griffin [facility] [employer] Address Unknown Phone Unavailable Care Team Providers Care Database Tester Name Role Phone Jignesh Griffin CP Unavailable [...] Date End Date Status Dosage Medrol Dose [facility] [id number] 4mg Orally as directed Mar 15, 2019 Active as directed Results No Known Results Summary Purpose [employer] Submission
--- OUTSIDE RECORDS SUMMARY | 2019-10-18 12:32 | XMS REPORT ---
Author Author KRYSTAL Griffin Organization [employer] Address Unknown Phone Unavailable Care Team Providers Care Stitching Department Supervisor Name Role Phone Jignesh Griffin CP Unavailable [...]
--- OUTSIDE RECORDS SUMMARY | 2019-10-18 12:32 | XMS REPORT ---
Author Author KRYSTAL Griffin Organization [employer] Address Unknown Phone Unavailable Care Team Providers Care Shake Loader Name Role Phone Jignesh Griffin Unavailable Allergies [...]
--- OUTSIDE RECORDS SUMMARY | 2019-10-18 12:32 | XMS REPORT ---
Author Author KRYSTAL Zuniga [employer] Address Unknown Phone Unavailable Care Team Providers Care Infusion Therapy Nurse Name Role Phone Yves Zuniga Unavailable Allergies, Adverse Reactions, Alerts Substance Reaction Event Type Penicillin shortness of breath Non Drug Allergy Detrol Info Not Available Non Drug Allergy Problems Problem Type Condition Code Onset Dates Condition Statu s Assessment Rheumatoid arthritis involvi ng multiple sites with positive rheumatoid factor M05.79 Active Problem Polyarthritis M13.0 Active Assessment Immunosuppressed status D89.9 Acti ve Problem Acute pain of right knee M25.561 [...] Start Date End Date Status Dosage Medrol ND 36784717245 4 MG Orally qAM Jul 18, 2019 Active 2 tablets with food or milk Escitalopram Oxalate ND 13106981404 10 MG Orally Once a day Active 1 tablet Advair [facility] 2001 72595316760 500-50 MCG/DOSE Inhalation Twice a day Active 1 puff HydrOXYzine HCl ND 56837285232 25 MG Orally every 8 hrs Active 1 tablet as needed Losartan Potassium-HCTZ ND 41353208257 100-25mg Orally Once a day Active 1 tablet Hydroxychloroquine Sulfate ND 38881554344 200 MG Orally twice a day Jul 05, 2019 Active 1 tablet with food o r milk Methotrexate ND 89509569814 2.5 MG Orally q weekly Jul 05, 2019 Active 8 tablets Allergy Shots NDC 0 Once a month Active 4 s hots Trazodone HCl ND 20343020609 50 MG Orally Once a day Active 1 tablet at bedtime as needed Folic Acid ND 75845700812 1 MG Orally Once a day September 09, 2018 Active 1 tablet Caltrate 600+D ND 08834732725 600-800 MG-UNIT Orally Once a day Active 1 tablet with a meal Potassium NDC 0 Oral Active 1 tab Vital Signs Date/Time: August 30, 2019 BMI 34.57 Index Weight 186 lbs Height 61.5 in Temperature 98 F Cardiac Monitoring Heart Rate 60 /min Blood Pressure Diastolic 60 mm Hg Blood Pressure Systolic 126 mm Hg Results No Known Results Summary Purpose [employer] Submission
--- OUTSIDE RECORDS SUMMARY | 2019-10-18 12:32 | XMS REPORT ---
Author Author KRYSTAL Griffin Organization [employer] Address Unknown Phone Unavailable Care Team Providers Care Ethylene Compressor Operator Name Role Phone Jignesh Griffin CP Unavailable Allergies No Known Allergies Problems Problem Type Condition Code Onset Dates Condition Statu s Problem Pain in right shoulder M25.511 Activ e Problem Polyarthritis M13.0 Active Problem Polymyalgia rheumatica M35.3 Activ e Assessment Wrist pain, left M25.532 Active Assessment Wrist pain, right M25.531 Active Problem Positive PONCE (antinuclear antibody) R76.8 Active Assessment Polyarthritis M13.0 Active Medications No Known Medications Results No Known Results Summary Purpose [employer] Submission
--- OUTSIDE RECORDS SUMMARY | 2019-10-18 12:32 | XMS REPORT ---
Author Author KRYSTAL Griffin Organization [employer] Address Unknown Phone Unavailable Care Team Providers Care Respiratory Equipment Assistant Name Role Phone Jignesh Griffin CP Unavailable [...]
--- OUTSIDE RECORDS SUMMARY | 2019-10-18 12:32 | XMS REPORT ---
Author Author KRYSTAL Griffin Organization [employer] Address Unknown Phone Unavailable Care Team Providers Care It Security Manager Name Role Phone Jignesh Griffin CP [...]
--- OUTSIDE RECORDS SUMMARY | 2019-10-18 12:32 | XMS REPORT ---
Author Author KRYSTAL Griffin Organization [employer] Address Unknown Phone Unavailable Care Team Providers Care Safety Director Name Role Phone Jignesh Griffin CP Unavailable Allergies No Known Allergies Problems Problem Type Condition Code Onset Dates Condition Statu s Problem Polymyalgia rheumatica M35.3 Activ e Problem Pain in right shoulder M25.511 Activ e Problem Rheumatoid arthritis involvi ng multiple sites with positive rheumatoid factor M05.79 Active Problem Polyarthritis M13.0 Active Problem Positive PONCE (antinuclear antibody) R76.8 Active Medications No Known Medications Results No Known Results Summary Purpose [employer] Submission
--- OUTSIDE RECORDS SUMMARY | 2019-10-18 12:32 | XMS REPORT ---
Author Author KRYSTAL Griffin Organization [employer] Address Unknown Phone Unavailable Care Team Providers Care Scientific Editor Name Role Phone Jignesh Griffin CP Unavailable [...] Instructions Start Date End Date Status Dosage Methotrexate NDC 61229590637 2.5 MG Orally q week Mar 28, 2019 Active 5 tablets Voltaren Gel NDC 0 1% Transdermal Four times a day Mar 28 9 Active apply to affected area Results No Known Results Summary Purpose [employer] Submission
--- OUTSIDE RECORDS SUMMARY | 2019-10-18 12:32 | XMS REPORT ---
Author Author KRYSTAL Griffin [facility] [employer] Address Unknown Phone Unavailable Care Team Providers Care Chief I Dispatcher Name Role Phone Jignesh Griffin Unavailable Allergies, Adverse Reactions, Alerts Substance Reaction Event Type Detrol Info Not Available Non Drug Allergy Penicillin shortness of breath Non Drug Allergy Problems Problem Type Condition Code Onset Dates Condition Statu s Assessment Rheumatoid arthritis involvi ng multiple sites with positive rheumatoid factor M05.79 Active Assessment Polymyalgia rheumatica M35.3 Activ e Assessment Pain in right shoulder M25.511 Activ e Problem Acute pain of left knee M25.562 [...] End Date Status Dosage Caltrate 600+D ND 05596912824 600-800 MG-UNIT Orally Once a day Active 1 tablet with a meal Tylenol 8 Hour ND 93003629304 650 MG Orally As needed Active 2 tablets as needed Hydroxychloroquine Sulfate ND 13336531131 200 MG Orally twice a day November 08, 2018 Active 1 tablet [place] [address] - Orally Active as di rected Benzonatate ND 10404337622 200 MG Orally Three times a day Active 1 capsule Methotrexate ND 35267236757 2.5 MG Orally q week September 09, 2018 Active 5 tablets HydrOXYzine HCl ND 28288713726 25 MG Orally every 8 hrs Active 1 tablet as needed Ibuprofen ND 41555486614 200 MG Orally As needed Ac tive 1 tablet with food or milk as needed Folic Acid ND 18916782967 1 MG Orally Once a day September 09, 2018 Active 1 tablet Allergy Shots NDC 0 Once a month Active 4 s hots Advair Diskus [facility] 00614237837 500-50 MCG/DOSE Inhalation Twice a day Active 1 puff Escitalopram Oxalate [facility] 89069358616 10 MG Orally Once a day Active 1 tablet Losartan Potassium-HCTZ [facility] 34417036051 100-25mg Orally Once a day Active 1 tablet Vital Signs Date/Time: Feb 03, 2019 BMI 35.86 Index Weight 196.1 lbs Height 62 in Temperature 98.5 F Cardiac Monitoring Heart Rate 64 /min Blood Pressure Diastolic 70 mm Hg Blood Pressure Systolic 122 mm Hg Results No Known Results Summary Purpose [employer] Submission
--- NOTE | 2019-10-18 13:00 | Diagnostic Imaging Report ---
X-ray right knee portable 2 views History: Postoperative Findings: See impression Impression: Status post total right knee arthroplasty with orthopedic hardware in position and in alignment, soft tissue swelling, soft tissue air and surgical harriett consistent with postoperative state. Signed by: Orestes Ellison MD on 10/18/2019 12:57 PM
--- NOTE | 2019-10-18 13:19 | NUR ---
RECEIVED PATIENT FROM PACU. PATIENT A/O X3, EVEN RESPIRATIONS ON RA. LUNG SOUNDS CLEAR. RIGHT KNEE DRESSING C/D/I. RIGHT HAND 20 GAUGE IV WITH NS @ 100 CC/HR. KATHRYN HOSE TO LEFT LEG. CALL LIGHT IN REACH WILL CONTINUE TO MONITOR PATIENT.
--- NOTE | 2019-10-18 13:30 | NUR ---
PATIENT HAS VOIDED SINCE SURGERY.
[2019-10-18] MEDS ORDERED: ACETAMINOPHEN 1000 MG/100 ML IV PRN (14:00)
[2019-10-18 14:18] VITALS: BP 125/64
[2019-10-18 14:21] VITALS: BP 125/64
--- NOTE | 2019-10-18 15:18 | NUR ---
DR CRABTREE OFFICE PREARRANGED FOLLOWING DISCHARGE PLAN OF: HOME TO [address] [phone] HOME HEALTH WITH HOME CARE PROVIDERS CONFIRMED WITH [facility] [phone] DME CPM AND ROLLING WALKER WITH WHEELS. PROVIDED BY [employer] 3 IN 1 NOT COVERED BY INSURANCE AND PT DECLINED, [place] [phone] MILLER SIGNED AND ON CHART COPY LEFT WITH PATIENT GAVE CARD FOR QUESTIONS AND OR CONCERNS.
--- NOTE | 2019-10-18 15:25 | Operative Report ---
DATE OF PROCEDURE: 10/18/2019 SURGEON: Foster Watts MD SUBSTATION OPERATOR: Dalton Pathak, certified PA. PREOPERATIVE DIAGNOSIS: Rheumatoid arthritis, right knee. POSTOPERATIVE DIAGNOSIS: Rheumatoid arthritis, right knee. PROCEDURE: Right total knee arthroplasty. INDICATIONS: The patient is a 69-year-old lady with longstanding rheumatoid arthritis. She complains of right knee pain. She has failed conservative management and would like to proceed with a right total knee replacement. She has been through a left total knee replacement and is happy with the outcome and is familiar with the process. The risks and benefits have been reviewed. All of her questions have been answered. She states she understands and wishes to proceed. PROCEDURE IN DETAIL: The patient was brought to the operating room and placed under general anesthetic. She received prophylactic antibiotics, tranexamic acid, and a regional block in the holding area. She reported a history of allergy to penicillin. A test dose of Ancef was given and was not a problem. The whole 2 g was administered. Her right lower extremity was prepped and draped in a sterile manner. A preoperative time-out was performed. The extremity was exsanguinated and a proximal tourniquet was inflated to 300 mmHg. An anterior incision was made with a medial parapatellar arthrotomy. She was noted to have a spike in her blood pressure and a venous tourniquet resulted. The tourniquet was deflated and time was provided to get her blood pressure under control. The extremity was exsanguinated a second time and then elevated to 300 mmHg. No further issues were encountered. Soft tissue releases were performed to bring the knee up into flexion with the patella everted. The cruciate ligaments were sacrificed. A subtotal synovectomy was performed due to extensive inflammatory synovitis. An extramedullary cutting guide was used to resect the proximal tibia. The tibial base plate was a size #4. The central fin punch was impacted and attention was directed towards the distal femur. An intramedullary cutting guide was used to resect the distal femur in 5 degrees of valgus and rotation referencing off a combination of landmarks including Whitesides line, the epicondylar axis, and the posterior condyles. The femur was a size 5. The anterior, posterior, and notch cuts were all made. Trial reductions were performed. A 9 mm posterior stabilized tibial insert provided appropriate soft tissue balancing in full extension and 90 degrees of flexion. The patella was resurfaced with a 29 mm x 9 mm patellar button. The thickness was checked before and after, and was right around 22 mm. Patellar tracking was concentric. The trial implants were removed. A 100 mL premixed pericapsular LUIZ injection was placed into the surrounding soft tissue. The knee was thoroughly irrigated with a shower tip pulsatile lavage. The components were cemented into place using a single mix of high viscosity Biomet cement preloaded with antibiotics. Care was taken to remove extravasated cement. The wound was further irrigated while the cement cured. The arthrotomy was then closed with interrupted #1 Ethibond. The distal tissue was thin and fragile. The knee was put through flexion and extension to ensure a secure closure. The skin was carefully closed with subcuticular Vicryl and harriett. The skin was very thin. A sterile Aquacel bandage was applied. The patient was extubated and transported to the recovery room in stable condition. Estimated blood loss was 100 mL. All needle and sponge counts were correct. Foster Watts MD DR/LIU /[id number]
[2019-10-18 16:28] VITALS: BP 127/64
[2019-10-18] MEDS: CELECOXIB 100 MG CAP PO SCH (17:07)
[2019-10-18] MEDS: CEFAZOLIN SOD 1 GM/NS 50ML 50 ML IV SCH (17:07)
[2019-10-18] MEDS: ASPIRIN 325 MG TAB PO SCH (17:07)
[2019-10-18] MEDS: HYDROCODONE/APAP 7.5MG-325MG 1 EA TAB PO PRN (17:30)
--- NOTE | 2019-10-18 18:20 | NUR ---
CPM STARTED AT 55 DEGREES. PATIENT TOLERATING WELL.
--- NOTE | 2019-10-18 18:50 | NUR ---
RECEIVED REPORT FROM PREVIOUS NURSE. CALL LIGHT WITHIN REACH. PATIENT IN BED. Addendum: 10/18/19 at 2100 by Sahra Meza RN CPM AT 55
[2019-10-18 19:10] VITALS: BP 127/65
[2019-10-18] MEDS ORDERED: ONDANSETRON HCL INJ 2MG/ML 2ML 2 MG/ML VIAL ONE (19:45)
[2019-10-18] MEDS ORDERED: ETOMIDATE 2 MG/ML 10 ML INJ IV ONE (19:45)
[2019-10-18] MEDS ORDERED: SEVOFLURANE INHAL SOLN 250 ML PEN BTL ONE (19:45)
[2019-10-18] MEDS ORDERED: LIDOCAINE HCL 2% LOCAL INJ 5 ML SDV VIAL INJ ONE (19:45)
[2019-10-18] MEDS ORDERED: LABETALOL HCL 5 MG/ML 20ML VIAL ONE (19:45)
[2019-10-18] MEDS ORDERED: LIDOCAINE 2%/ EPINEPHRINE 20ML MDV ONE (19:56)
[2019-10-18] MEDS ORDERED: ROPIVACAINE 0.5% 5 MG/ML 30 ML SDV ONE (19:56)
[2019-10-18] MEDS ORDERED: ZOLPIDEM TARTRATE 5 MG TAB PO PRN (21:00)
[2019-10-19] VITALS: BP 119/57
[2019-10-19] MEDS: CEFAZOLIN SOD 1 GM/NS 50ML 50 ML IV SCH ×2 (01:50→09:59)
[2019-10-19] MEDS: HYDROCODONE/APAP 7.5MG-325MG 1 EA TAB PO PRN ×3 (02:39→12:35)
[2019-10-19 03:50] VITALS: BP 115/65
[2019-10-19 06:11] LABS: HEMATOCRIT 34.4 % (34.2-44.1); HEMOGLOBIN 10.6 g/dL (12.0-16.0)
--- NOTE | 2019-10-19 06:55 | NUR ---
RECEIVED BY ON BEDSIDE REPORT CMP IN PROGRESS. CPM AT 60
--- NOTE | 2019-10-19 07:25 | NUR ---
GAVE REPORT TO ONCOMING NURSE. CALL LIGHT WITHIN REACH. PATIENT IN BED. ROUNDING DONE.
[2019-10-19 07:48] VITALS: BP 134/68
[2019-10-19 08:00] VITALS: BP 134/68
[2019-10-19] MEDS: ASPIRIN 325 MG TAB PO SCH (08:12)
[2019-10-19] MEDS: CELECOXIB 100 MG CAP PO SCH (08:13)
[2019-10-19] MEDS ORDERED: ONDANSETRON HCL 4 MG ORAL DISINTEGRATING TAB PO PRN (09:00)
--- NOTE | 2019-10-19 11:30 | NUR ---
PT WORKS WITH PT FOR SECOND TIME TODAY AND TOLERATED WELL. WILL BE DISCHARGED AFTER LUNCH
[2019-10-19 12:01] VITALS: BP 134/65
--- NOTE | 2019-10-19 13:40 | NUR ---
PT ACCOMPANIED OUT BY STAFF VIA WC. AT SIDE.
[2019-10-19] MEDS ORDERED: CELECOXIB 200 MG CAP PO SCH (17:00)
== END 2019-10-19 13:40 | disposition home health service (06) ==
LOC: OR 08:03 → PACU V 11:46 → MED/SURG 13:20
PROVIDERS: ADMIT Specialist; ATTEND Specialist
DX: M06.861 Other specified rheumatoid arthritis, right knee (principal); I10 Essential (primary) hypertension; M06.9 Rheumatoid arthritis, unspecified; Z88.0 Allergy status to penicillin; Z88.8 Allergy status to other drugs, medicaments and biological substances; Z96.652 Presence of left artificial knee joint; Z11.59 Encounter for screening for other viral diseases; Z01.812 Encounter for preprocedural laboratory examination
CPT/HCPCS: 27447; 36415 ×2; 73560; 80048; 85014; 85018; 85025; 86850; 86900; 86920; 87635; 97116; 97139; 97161; 97530 ×2; C1713 ×3; G0378 ×2; J0171; J0690 ×2; J1100; J1170; J2001 ×2; J2405; J2795; J3370; J3490; J7030; J7050

== ENCOUNTER → 2020-08-08 | Outpatient (CLI) | payer OTHER, MEDICARE ==
[~2020-08-08] MED LIST changes: -ROPIVACAINE 246.25 MG, EPINEPHRINE HCL 1:1000 1ML 0.5 MG, CLONIDINE HCL 0.08 MG in SODI... INJ ONE
== END ==
LOC: RAD 12:27
PROVIDERS: ATTEND Family Medicine
DX: Z01.818 Encounter for other preprocedural examination (principal)
CPT/HCPCS: 71046

== ENCOUNTER → 2021-08-14 | Outpatient (CLI) | payer MEDICARE, OTHER | LOC: RAD 09:32 | PROVIDERS: ATTEND Family Medicine | DX: M54.16 Radiculopathy, lumbar region (principal) | CPT/HCPCS: 72110 ==

== ENCOUNTER 2021-08-29 04:32 | Emergency (ER) | payer MEDICARE, OTHER ==
[~2021-08-29] VITALS: Ht 162.6 cm; Wt 87.5 kg
[~2021-08-29 04:32] MED LIST changes: +ACETAMINOPHEN-1 EAC4 PO
[2021-08-29] MEDS ORDERED: ONDANSETRON HCL 4 MG ORAL DISINTEGRATING TAB PO ONE (05:30)
[2021-08-29] MEDS ORDERED: Morphine 4mg Syringe 4 MG/ML INJ IM ONE (05:30)
[2021-08-29 06:49] VITALS: BP 114/61
== END 2021-08-29 06:55 | disposition home or self-care (01) ==
LOC: ER 04:46
DX: M25.562 Pain in left knee (principal); M25.561 Pain in right knee; S80.02XA Contusion of left knee, initial encounter; S80.01XA Contusion of right knee, initial encounter; W01.0XXA Fall on same level from slipping, tripping and stumbling without subsequent striking against object, initial encounter; Y93.01 Activity, walking, marching and hiking; Y92.000 Kitchen of unspecified non-institutional (private) residence as the place of occurrence of the external cause; M06.9 Rheumatoid arthritis, unspecified; G89.29 Other chronic pain
CPT/HCPCS: 72170; 73562 ×2; 99283; J2270; Q0162